=== PATIENT | male | born 1975 | race Two or more races ===

== ENCOUNTER 2021-01-25 10:51 | Outpatient (REF) | payer MEDICARE, MEDICAID, SELFPAY ==
--- NOTE | ~2021-01-25 | XR_ITS ---
EXAMINATION: XR ABDOMEN KUB CLINICAL INDICATION: Abdominal pain COMPARISON: None TECHNIQUE: AP view of the abdomen. FINDINGS: There is a moderate amount of stool in the colon. There are no dilated loops of bowel to suggest obstruction. There is no evidence of free air. No calcifications project over the kidneys. There are small calcifications in the right pelvis probably representing calcified phleboliths. Bony structures are unremarkable. XR/XR KUB IMPRESSION: Moderate amount of stool the colon otherwise unremarkable exam.
[2021-01-25 12:15] LABS: Hematocrit 44.4 % (42-52); Hemoglobin 14.8 g/dl (14.0-18.0); Mean Corpuscular HGB Conc 33.3 g/dl (31.0-36.0); Mean Corpuscular Hemoglobin 31.9 pg (27.0-33.0); Mean Corpuscular Volume 95.7 fL (80-98); Mean Platelet Volume 9.4 fL (9.4-12.4); Platelet Count 324 X10*3/uL (160-400); Red Blood Count 4.64 X10*6/uL (4.60-5.80); White Blood Count 8.2 X10*3/uL (4.8-10.8)
[2021-01-25 12:41] LABS: Alanine Aminotransferase 18 U/L (0-40); Albumin Level 4.3 g/dL (3.5-5.0); Alkaline Phosphatase 53 U/L (39-117); Anion Gap 11 (12-20); Aspartate Amino Transferase 16 U/L (5-37); Bilirubin Direct 0.2 mg/dL (0.0-0.5); Bilirubin Total 0.5 mg/dL (0.0-1.0); Blood Urea Nitrogen 13 mg/dL (9-16); Calcium 9.2 mg/dL (8.4-10.2); Carbon Dioxide 29 mmol/L (22-29); Chloride 102 mmol/L (96-108); Cholesterol 180 mg/dL; Estimated Glomerular Filt Rate > 60; Glucose Fasting 89 mg/dL (60-99); HDL Cholesterol 61 mg/dL; LDL Cholesterol Calculated 107 mg/dl; Potassium 4.7 mmol/L (3.3-5.1); Sodium 137 mmol/L (135-145); Triglycerides 63 mg/dL
[2021-01-25 12:53] LABS: TSH reflex Free T4 1.29 uIU/mL (0.32-4.0)
== END 2021-01-25 10:52 | disposition home or self-care (01) ==
LOC: HO.LAB 10:51
PROVIDERS: PCP Family Medicine; Visit Provider Hospitalist
DX: Z00.00 Encounter for general adult medical examination without abnormal findings (principal); R10.9 Unspecified abdominal pain
CPT/HCPCS: 36415; 74018; 80048; 80061; 80076; 84443; 85027

== ENCOUNTER 2021-05-12 18:40 | Outpatient (REF) | payer MEDICARE, MEDICAID, SELFPAY | END 2021-05-12 18:41 | disposition home or self-care (01) | LOC: HO.LNP 18:40 | PROVIDERS: Visit Provider Internal Medicine | DX: Z13.89 Encounter for screening for other disorder (principal) ==

== ENCOUNTER → 2021-06-23 09:48 | Outpatient (BNVA) | payer MEDICARE, MEDICAID, SELFPAY | PROVIDERS: PCP Family Medicine; Visit Provider Student in an Organized Health Care Education/Training Program | DX: M54.9 Dorsalgia, unspecified (principal); M25.562 Pain in left knee; G89.29 Other chronic pain | CPT/HCPCS: 99202 ==

== ENCOUNTER 2021-12-28 17:45 | Emergency (ER) | payer OTHER, SELFPAY ==
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
[2021-12-28 18:00] VITALS: BP 161/110; PULSE 99; RESP 16; TEMP 36.6; O2SAT 100; BMI 26.6
[2021-12-28 18:16] VITALS: BP 160/100; PULSE 91; RESP 16; O2SAT 99
[2021-12-28] MEDS: Acetaminophen 325 MG TABLET 975 MG PO (19:01)
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
[2021-12-28 19:43] VITALS: RESP 16
--- NOTE | 2021-12-28 19:44 | PC.NURSE ---
PT ASKING FOR FOOD. PROVIDER STATES NPO UNTIL RESULTS OF CT BACK. PT AWARE. RESTING ON BED TALKING ON PHONE.
--- NOTE | 2021-12-28 20:55 | PC.NURSE ---
PT ASKING FOR FOOD. REINFORCED NPO UNTIL RESULTS OF CT. PT AGREEABLE.
[2021-12-28] MEDS: HYDROcodone Bit/Acetam 5/325 TABLET 1 TAB PO (21:29)
[2021-12-28] MEDS: Ibuprofen 600 MG TABLET PO (21:30)
--- NOTE | 2021-12-28 21:32 | PC.NURSE ---
CT WNL. SANDWICH AND GINGERALE GIVEN. MED WITH MOTRIN AND NORCO ORDERED.
[2021-12-28 21:41] VITALS: BP 142/95; PULSE 82; RESP 16; O2SAT 100
== END 2021-12-28 22:09 | disposition home or self-care (01) ==
PROVIDERS: Emergency Provider Internal Medicine; PCP Family Medicine
DX: S39.012A Strain of muscle, fascia and tendon of lower back, initial encounter (principal); S29.012A Strain of muscle and tendon of back wall of thorax, initial encounter; S09.90XA Unspecified injury of head, initial encounter; G44.309 Post-traumatic headache, unspecified, not intractable; M54.2 Cervicalgia; V43.52XA Car driver injured in collision with other type car in traffic accident, initial encounter; Y93.9 Activity, unspecified; Y92.410 Unspecified street and highway as the place of occurrence of the external cause; Y99.9 Unspecified external cause status; F17.210 Nicotine dependence, cigarettes, uncomplicated; Z71.6 Tobacco abuse counseling; Z79.899 Other long term (current) drug therapy
CPT/HCPCS: 70450; 72125; 99284

== ENCOUNTER 2022-02-20 11:00 | Outpatient (RCR) | payer OTHER, MEDICARE, SELFPAY ==
--- NOTE | 2022-03-16 14:58 | MHC.PT.DC ---
[facility] [place] Office [place] Office [place] Office [address] Rhett Bermeo [address] [phone] F: [phone] F: [phone] F: [phone] F: [phone] Physical Therapy Discharge Report Diagnosis: DORSALGIA, UNSPECIFIED (M54.9) Date of Surgery: NA Date of Evaluation: 01/31/22 Date of Discharge: 03/02/22 Treatments to Date: 3 Cancellations to Date: 3 No Shows to Date: 2 Discharge Status: Visit Non-compliance Discharge Summary: Pt CANCELLED AND NO SHOWED FOR MULTIPLE VISITS, UNABLE TO CONTACT BY PHONE AND HAS NO REMAINING VISITS SCHEDULED. HE IS DCed DUE TO NON-COMPLIANCE AT THIS TIME. Electronically signed by: VICKIE RUDOLPH PT, DPT Please sign and return to therapist. Thank you for your referral.
== END 2022-03-16 15:10 | disposition home or self-care (01) ==
LOC: HO.PT 11:00
PROVIDERS: PCP Family Medicine; Visit Provider Family Medicine
DX: M54.9 Dorsalgia, unspecified (principal)
CPT/HCPCS: 97110; 97140; 97162

== ENCOUNTER 2022-05-16 09:00 | Outpatient (RCR) | payer OTHER, MEDICARE, MEDICAID, SELFPAY ==
--- NOTE | 2022-04-19 12:31 | MHC.PT.EP ---
[facility] [place] Office [place] [facility] [place] [facility] [address] Rhett Bermeo [address] [phone] F: [phone] F: [phone] F: [phone] F: [phone] Physical Therapy Plan of Care Date of Evaluation: Date of Surgery: NA Diagnosis: POST-CONCUSSION SYNDROME (KP) Assessment: ALAN RETURNS FOR CONTINUED THERAPY DUE TO ONGOING HEADACHES AND POST-CONCUSSIVE SYMPTOMS. UPON EXAM HE DEMONSTRATES IMPAIRMENTS OF DECREASED TISSUE MOBILITY, INCREASED C/O CERVICOGENIC HEADACHES, DECREASED UPPER EXTREMITY STRENGTH. FUNCTIONAL LIMITATIONS INCLUDE DECREASED ABILITY TO PERFORM HOMEMAKING AND SELF CARE TASKS, DECREASED TOLERANCE TO LIFTING, REACHING AND CARRYING, DECREASED ABILITY TO PARTICIPATE IN COMMUNITY AND RECREATIONAL ACTIVITIES AND DECREASED CONCENTRATION AND FOCUS. Frequency and Duration: The patient will be seen 2 X WEEK FOR 4 WEEKS Short Term Goals: REVIEW AND PROGRESS PREVIOUS [facility] Materials Handling Coordinator Goals: IN 4 WEEKS TO DEMONSTRATE FULL, PAINFREE CERVICAL AND GH ROM TO DEMONSTRATE FULL UE STRENGTH, EQUAL SALINAS TO LIFT, AT MINIMUM #10 TO SHOULDER HEIGHT WITH PAIN NO GREATER THAN 2/10 TO REPORT LESS THAN 2 HEADACHE DAYS/WEEK Treatment Plan: Modalities to reduce pain, spasms and effusion. Manual therapy to restore motion and function. Therapeutic exercise to improve strength and flexibility. Neuromuscular re-education for posture and balance. Therapeutic activities to return to functional activities of daily living. Electronically signed by: VICKIE RUDOLPH PT, DPT Please sign and return to therapist. Thank you for your referral.
== END 2022-06-29 12:59 | disposition home or self-care (01) ==
LOC: HO.PT 09:00
PROVIDERS: PCP Family Medicine; Visit Provider Family Medicine
DX: S06.0X0A Concussion without loss of consciousness, initial encounter (principal)
CPT/HCPCS: 97110; 97140; 97162

== ENCOUNTER 2022-10-23 10:09 | Outpatient (REF) | payer MEDICARE, MEDICAID, SELFPAY ==
[2022-10-23 11:34] LABS: Appearance Urine Clear; Color Urine Yellow; Glucose Urine UA Negative (Negative); Leukocyte Esterase Urine Negative (Negative); Nitrite Urine Negative (Negative); Specific Gravity - Urine <= 1.005 (1.005-1.025); UMIC TRIGGER UA YES; Urine Blood Trace (Negative); Urine Ketones Negative (Negative); Urine Protein Negative (Neg-Trace)
[2022-10-23 11:39] LABS: Bacteria Urine None Seen (None Seen); Hyaline Casts Urine 0-2 /LPF (0-2); RBC Urine 0-2 /HPF (0-2); Squamous Epithelial Cell Urine 0-2 /HPF (0-2); WBC Urine 0-5 /HPF (0-5)
[2022-10-23 12:30] LABS: Alanine Aminotransferase 24 U/L (0-40); Albumin Level 4.4 g/dL (3.5-5.0); Alkaline Phosphatase 75 U/L (39-117); Anion Gap 13 (12-20); Aspartate Amino Transferase 20 U/L (5-37); Bilirubin Total 0.3 mg/dL (0.0-1.0); Blood Urea Nitrogen 11 mg/dL (9-16); Carbon Dioxide 27 mmol/L (22-29); Chloride 103 mmol/L (96-108); Cholesterol 195 mg/dL; Estimated Glomerular Filt Rate > 60; Glucose Fasting 79 mg/dL (60-99); HDL Cholesterol 64 mg/dL; LDL Cholesterol Calculated 115 mg/dl; Potassium 4.8 mmol/L (3.3-5.1); Sodium 138 mmol/L (135-145); Total Protein 7.3 g/dL (6.5-8.0); Triglycerides 84 mg/dL
[2022-10-23 12:42] LABS: Prostate Specific Antigen Scr 0.69 ng/mL (<0.05-4.0); TSH reflex Free T4 0.99 uIU/mL (0.32-4.0)
== END 2022-10-23 10:10 | disposition home or self-care (01) ==
LOC: HO.LAB 10:09
PROVIDERS: Visit Provider Family Medicine
DX: Z00.00 Encounter for general adult medical examination without abnormal findings (principal); Z13.220 Encounter for screening for lipoid disorders; Z13.29 Encounter for screening for other suspected endocrine disorder; Z12.5 Encounter for screening for malignant neoplasm of prostate
CPT/HCPCS: 36415; 80053; 80061; 81001; 84153; 84443

== ENCOUNTER 2022-11-08 14:40 | Outpatient (REF) | payer MEDICARE, MEDICAID, SELFPAY ==
--- NOTE | ~2022-11-08 | FL_ITS ---
EXAMINATION: FL MODIFIED BARIUM SWALLOW CLINICAL INFORMATION: R13.10 - Dysphagia, unspecified COMPARISON: CT head and CT cervical spine 12/28/2021 TECHNIQUE: Modified barium swallow examination is performed with imaging in the lateral view and the presence of the speech pathologist using a variety of barium consistencies, including barium pill. The exam is performed with fluoroscopic evaluation, videofluoroscopy, and some fluoroscopic spot views. Fluoroscopy time: 1.4 minutes DAP: 1.949 Gycm2 Fluoroscopic spot images: 1 FINDINGS: There is normal swallowing with no laryngeal penetration or aspiration. No nasopharyngeal penetration. With thicker barium consistencies, there is some posterior lingual escape prior to initiation of swallowing with barium pooling in the vallecula and some in performed sinuses. Prompt passage of barium pill from mouth to stomach without delay. See speech pathologist report for further assessment and recommendation. FL/FL barium swallow modified IMPRESSION: -No laryngeal penetration or aspiration. -Posterior lingual escape prior to initiation of swallowing with thicker barium consistencies. -See speech pathologist report for further assessment and recommendation.
--- NOTE | 2022-11-08 16:35 | MHC.SL.IMP ---
Date of Plan of Treatment: 11/08/22 Onset of Symptoms/Illness: 11/08/21 Date Treatment Started: 11/08/22 Admitting Diagnosis: Allergies Arthritis Back pain Fibromyalgia Umbilical hernia SURGICAL HX: left knee surgery, hernia surgery Primary Speech & Language Diagnosis: R13.10 Dysphagia Reason for Today's Visit: 70741 Modified Barium Swallow Study Pre-evaluation Dietary Consistencies: Regular Pre-evaluation Liquid Consistency: Thin Pre-evaluation Medication Administration: Whole with Liquid Medical History: Modified Barium Swallow Study Fluoroscopic Evaluation of Swallowing Function CPT Code 74312 Evaluation Year: 2021 Reason for Study: Patient reports globus sensation and pain when swallowing. Referring Physician: Jono Lehman MD Evaluating Clinician: Letitia Crook MA, CCC-FISHING VESSEL DECKHAND Study Number: 1 Patient Name: Eagle Balbuena Status: Outpatient, Ambulatory Age: 47 Gender: Male MEDICAL HISTORY: Allergies Arthritis Back pain Fibromyalgia Umbilical hernia SURGICAL HX: left knee surgery, hernia surgery Current (pre-evaluation) Intake/Diet: Route: PO Diet Grade: Regular Liquid Consistencies: Thin Pre-Study Functional Oral Intake Scale (FOIS): 7- Total oral intake with no restrictions Pain: Chronic/Ongoing reported at time of study, Throat, rated 7 on scale 0-10 SUBJECTIVE: Pt is a 47 year old male referred for a modified barium swallow study by Jono Lehman MD of [facility]. Pt has hx of persistent acid reflux and reported intermittent odynophagia. Pt reported that his throat gets very dry when eating and that it is hard for him to swallow. Pt reports intermittent coughing during meals, and that this occurs with liquids sometimes, but more so with dry solids. Pt reports ongoing throat pain, which he rates 6 or 7 out of 10. Pt reports that he feels pain in his throat at rest and when he is coughing or swallowing. Additionally, pt reported he feels globus sensation sometimes, but not always. Pt reports onset of dysphagia to be approximately 1 year ago. Oral Motor Exam Facial Symmetry: Symmetrical Mouth Occlusion: Normal Oral-Facial Teeth Characteristics: Intact/Normal Oral-Facial Smile (Lips) Description: Normal Oral-Facial Puff Cheeks Description: Normal Tongue Size: Normal Tongue Excursion Description: Normal Tongue Range of Movement Description: Normal Tongue Speed of Movement Description: Normal Tongue Strength of Movement (against opposing pressure): Normal Tongue Movement Characteristics: Normal/Absent Is patient able to manage secretions?: Yes Food and Liquid Trials: Oral Impairment: Lip Closure: Did not test Oral Impairment: Tongue Control During Bolus Hold: 2=Posterior escape of less than half of bolus Oral Impairment: Bolus Preparation/Mastication: 0=Timely and efficient chewing and mashing Oral Impairment: Bolus Transport/Lingual Motion: 1= Delayed initiation of tongue motion Oral Impairment: Oral Residue: 0=Complete oral clearance Oral Impairment:Initiation of Pharyngeal Swallow: 3=Bolus head in pyriforms Pharyngeal Impairment: Soft Palate Elevation: 0=No bolus between soft palate (SP)/pharyngeal wall (PW) Pharyngeal Impairment: Laryngeal Elevation: 0=Complete superior movement of thyroid cartilage (see description) Pharyngeal Impairment: Anterior Hyoid Excursion: 0=Complete anterior movement Pharyngeal Impairment: Epiglottic Movement: 0=Complete inversion Pharyngeal Impairment: Laryngeal Vestibular Closure:: 0=Complete: no air/contrast in laryngeal vestibule Pharyngeal Impairment: Pharyngeal Stripping Wave: 0=Present: complete Pharyngeal Impairment: Pharyngeal Contraction: Did not test Pharyngeal Impairment: Pharyngoesophageal Segment Openin=Complete distension and complete duration: no obstruction of flow Pharyngeal Impairment: Tongue Base (TB) Retraction: 1=Trace column of contrast/air between TB and posterior PW Pharyngeal Impairment: Pharyngeal Residue: 0=Complete pharyngeal clearance Pharyngeal Impairment: Esophageal Clearance Upright Position: 0=Complete clearance: esophageal coating Impressions and Recommendations Clinical Observations: OBJECTIVE: Time-out: performed at 3:00 Evaluation Start: 2:45; Stop: 2:46 Patient Positioning: Standing Viewing Planes: LATERAL ONLY Contrast: MBSImP? Standardized Protocol using commercially prepared, standardized Barium viscosities, including: Varibar? THIN LIQUID (40% w/v, <15 cps) , 1/2 Shortbread Cookie (1 x1 x.25 ) MBSImP ID: [id number] MBSImP Results: Lip closure for intraoral bolus containment could not be assessed due to logistical reasons not related to physiologic impairment. Tongue control during bolus hold resulted in posterior escape of less than half of the bolus. Bolus preparation and mastication resulted in timely and efficient chewing and mashing. Bolus transport/lingual motion demonstrated delayed initiation of tongue motion. Oral residue was not observed. There was complete oral clearance. Initiation of the pharyngeal swallow occurred when the bolus head was in the pyriform sinuses. Soft palate elevation resulted in no bolus between the soft palate and the pharyngeal wall. Laryngeal elevation demonstrated complete superior movement of the thyroid cartilage with complete approximation of the arytenoids to the epiglottic petiole. Anterior hyoid excursion demonstrated complete anterior movement. Epiglottic movement resulted in complete inversion. Laryngeal vestibular closure was complete, as indicated by no air or contrast within the laryngeal vestibule at the height of the swallow. Pharyngeal stripping wave was present and complete. Pharyngeal contraction could not be determined due to logistical reasons not related to physiologic impairment. Pharyngoesophageal segment opening was completely distended for complete duration with no obstruction of bolus flow. Tongue base retraction allowed a trace column of contrast or air between the retracted tongue base and the posterior pharyngeal wall. Pharyngeal residue was not present. There was complete pharyngeal clearance. Esophageal clearance in the upright position was complete, with only a coating of contrast, if any. Oral Impairment Score: 6 (absence of score, component 1) Pharyngeal Impairment Score: 0 (absence of score, component 13) Esophageal Impairment Score: 0 Laryngeal Penetration and Aspiration: Neither penetration nor aspiration was observed in today's study with Claudio Henry. ASSESSMENT: Clinician Assessment: This exam was conducted by a multidisciplinary team, which included a radiologist, speech pathologist (FISHING VESSEL DECKHAND), and cmm technician. An FISHING VESSEL DECKHAND student clinician was also present. Pt was able to feed himself without difficulty. Pt consumed the following liquid and solid consistencies: thin liquid barium by cup (individual sips and sequential sips), pureed solid (mixture applesauce with barium paste), ground solid (mixture chicken salad with barium paste), regular solid (Hui Doone cookie coated with barium paste), barium pill tablet with sequential sips nectar thick liquid. There was premature posterior escape of less than half the bolus with sips of liquids, delayed posterior lingual motion. Mastication was timely and efficient with complete oral recollection. Pharyngeal swallow trigger initiated as bolus head reached pyriform sinuses. There was no nasopharyngeal reflux. Laryngeal elevation was complete with complete epiglottic inversion and complete laryngeal vestibular closure. No evidence of aspiration or penetration with intake of solids and liquids during this exam. There was complete pharyngeal clearance. No obstruction of flow through the pharyngoesohpageal segment opening. Barium pill tablet passed through oropharynx without hang up. Liquid Intake Recommendation: Thin Dietary Recommendations: Regular Medication Administration: Whole with Liquid Please contact the pharmacy regarding appropriate crushable or liquid drug formulations that are available whenever modified delivery is recommended. Compensatory Strategies Recommended: Sitting Upright (90 deg), Small Bites and Sips, Rate of Ingestion Change Supervision during eating and or drinking: None Needed Recommendation for Speech Therapy: NA:Typical Evaluation PLAN: Intake Recommendations: Route: PO Diet Grade: Regular Liquid Consistencies: Thin Post-Study Functional Oral Intake Scale (FOIS): 7- Total oral intake with no restrictions No evidence of aspiration or penetration. Complete oral and pharyngeal clearance. This exam was unremarkable. Pt may benefit from referral to ENT given reports of throat pain. Recommend continue care w/ G.I. for reflux. Suggested Referrals: The patient might benefit from a referral to: Gastroenterology Indication for Referral: Continue care; pt w/ hx reflux Otolaryngology Indication for Referral: Ongoing throat pain Therapy Recommendations: Therapy will be discontinued Prognosis for Improvement: The prognosis for the patient to meet nutritional needs by mouth is excellent based on degree of impairment. Clinician - Supplemental, Miscellaneous Communication: It is important to note MBSS objective studies are snapshots in time and Patient function might vary with factors such as time of day or concomitant medical conditions. For this reason, the final treatment plan for this patient should rest with their medical care team. Additional recommendations should be considered with the totality of the Patient in mind. Thank for the opportunity to participate in the care of this patient. If you have any questions about the content of this report, please contact the [facility] at [facility]. Education: Education regarding findings from today's study and plans for therapy were provided to Patient only through Verbal Instruction. Understanding was expressed by the Patient only. Stand Up Comedian Clinician/Clinical Fellow: Yes: Juan Carlos Powell Supervisory Statement: N/A Speech Language Pathologist: Letitia Crook M.A., CCC-FISHING VESSEL DECKHAND
== END 2022-11-08 14:41 | disposition home or self-care (01) ==
LOC: HO.XRAY 14:40
PROVIDERS: PCP Family Medicine; Visit Provider Family Medicine
DX: R13.10 Dysphagia, unspecified (principal); R10.9 Unspecified abdominal pain; K21.9 Gastro-esophageal reflux disease without esophagitis
CPT/HCPCS: 74230; 92611; 99202

== ENCOUNTER 2022-12-15 10:10 | Outpatient (REF) | payer MEDICARE, MEDICAID, SELFPAY ==
--- NOTE | ~2022-12-15 | US_ITS ---
EXAMINATION: US ABDOMEN COMPLETE CLINICAL INFORMATION: Unspecified abdominal pain. COMPARISON: X-ray abdomen KUB 01/25/2021. TECHNIQUE: Real-time imaging of the abdominal viscera. FINDINGS: PANCREAS: Normal. ABDOMINAL AORTA: The proximal, mid, and distal segments are normal in caliber. INFERIOR VENA CAVA: Visualized portions are normal. LIVER: Normal. The liver is normal in size. The liver contour is normal. Parenchymal echogenicity is normal. No focal hepatic lesion. There is no intrahepatic biliary duct dilatation seen. GALLBLADDER: Normal. The gallbladder is physiologically distended without evidence of stones, sludge, polyps, wall thickening or pericholecystic fluid. COMMON BILE DUCT: Normal in caliber measuring 0.3 cm in diameter. RIGHT KIDNEY: Normal. No hydronephrosis. No renal calculi or focal parenchymal lesions. The kidney measures 11.9 cm in maximum dimension. LEFT KIDNEY: Normal. No hydronephrosis. No renal calculi or focal parenchymal lesions. The kidney measures 11.8 cm in maximum dimension. SPLEEN: Normal. The spleen measures 8.7 cm in maximum dimension. FREE FLUID: None. US/US abdomen complete IMPRESSION: Unremarkable abdominal ultrasound.
== END 2022-12-15 10:11 | disposition home or self-care (01) ==
LOC: HO.US 10:10
PROVIDERS: Visit Provider Physician Assistant
DX: R10.9 Unspecified abdominal pain (principal)
CPT/HCPCS: 76700

== ENCOUNTER 2023-09-20 11:42 | Outpatient (AMB) | payer MEDICARE, MEDICAID, SELFPAY ==
[2023-09-20 13:16] VITALS: BP 118/82; PULSE 81; TEMP 36.9; O2SAT 97; BMI 23.4
--- NOTE | 2023-09-20 13:16 | AM.OFFWIN_ITS ---
Intake Vital Signs 09/20/23 13:16 Height 5 ft 7 in Weight 149 lb 6 oz BMI 23.4 BP 118/82 Blood Pressure Location Rt brachial Position Sitting Pulse 81 Pulse Source Pulse Oximeter Temp 98.5 F Temp Source Temporal Artery Scan Pulse Oximetry (%) 97 Oxygen Delivery Method Room Air Intake Visit Reasons: EST/dizziness Lobby Intake Note: Pt presents to the office today for c/o dizziness. Pt states he also has chest congestion, and green mucus that started about a week ago. Patient Tobacco Use Status: Current someday Tobacco user Allergies Seasonal Allergies Allergy (Severe, Verified 09/20/23 13:18) dry eyes, coughing sneezing, chest congestion. HPI HPI Comments History of Present Illness Details 48-year-old male that presents for flu-l bill symptoms. Patient has been experiencing body aches chills cough congestion intermittent dizziness x1 week. PFSH Medical History Umbilical hernia Back pain Arthritis Fibromyalgia Allergies Surgical History History of hernia surgery H/O left knee surgery Family History Mother Hypertension Diabetes Arthritis Social History Household Members Other:: fiance Housing: Apartment Alcohol intake: current Alcohol intake frequency: holidays/special occasions only Alcohol type: wine Patient Tobacco Use Status: Current someday Tobacco user Cigarettes Per Day: 3 Years Smoked: 20 e-Cigarette/Vaping Use: Never Used service: No Current occupational status: unemployed and disabled Current occupational exposures/hazards: No Cognitive needs: No Hearing needs: No Vision needs: No Review of Systems Const Reports body aches, Reports chills and Reports fatigue Resp Reports chest congestion and Reports cough Endo Reports fatigue Physical Exam Vital Signs: Last Vital Signs Temp 98.5 F 09/20/23 13:16 Pulse 81 09/20/23 13:16 BP 118/82 09/20/23 13:16 Pulse Ox 97 09/20/23 13:16 Oxygen Delivery Method Room Air 09/20/23 13:16 BMI result Body Mass Index 23.4 Const General: cooperative, no acute distress and alert Orientation/consciousness: patient oriented x3 Limitations: no limitations HEENT Head: Yes normal to inspection Ears: hearing grossly normal bilaterally and external ears normal General nose exam: Normal external nose present Eyes General: appearance normal, both eyes and all related structures Neck Neck: Yes normal visual inspection Chest Chest palpation & inspection: normal inspection of the chest Resp Effort & Inspection: normal respiratory effort, able to speak in complete sentences and no audible wheezes Auscultation: clear to auscultation bilaterally Cardio Rate: regular rate Rhythm: regular rhythm GI Inspection: Yes normal to inspection Palpation (GI): Soft to palpation and nontender Skin General skin exam: no rashes or lesions noted Neuro General: patient oriented x3 Psych Appearance: grossly normal Mental Status: mental status grossly normal Speech and movement: Normal speech and movement present Affect: normal affect Attitude: cooperative Thought process: Normal thought process present Thought content: Normal thought content present Assessment & Plan Assessment & Plan (1) URI (upper respiratory infection): Code(s): J06.9 - Acute upper respiratory infection, unspecified Qualifiers: URI type: unspecified viral URI Qualified Code(s): J06.9 - Acute upper respiratory infection, unspecified Plan: Patient is an symptoms consistent viral URI will provide COVID fluid orders the swab Discharge instructions, follow up and treatment are discussed with patient in my usual fashion. Alternatives in treatment are also discussed. The patient will return for worsening symptoms or as needed. Advised that any labs/imaging ordered will be followed up on and contact made if further treatment needed. Counseled that patient's condition may require further evaluation and/or treatment. Symptoms of concern for worsening disorder discussed in detail in my customary manner. Patient does verbalize understanding of the plan, there are no apparent barriers to communication. The patient is given the opportunity to ask questions and have them answered to his/her satisfaction Orders: Orders SARS-CoV2/FLU/RSV Today R09.89 - Other specified symptoms and signs involving the circulatory and respiratory systems Coding Level of Care Code Est Pt Level 3 (29120) Diagnoses Viral upper respiratory tract infection J06.9 URI type: unspecified viral URI
== END 2023-09-20 13:54 | disposition home or self-care (01) ==
PROVIDERS: PCP Family Medicine; Visit Provider Physician Assistant
DX: J06.9 Acute upper respiratory infection, unspecified (principal)
CPT/HCPCS: 99213

== ENCOUNTER 2023-09-20 13:52 | Outpatient (REF) | payer MEDICARE, MEDICAID, SELFPAY ==
[2023-09-20 17:22] LABS: Influenza A PCR NEGATIVE (Negative); Influenza B PCR NEGATIVE (Negative); Resp Syncy Virus RNA Qual PCR NEGATIVE (Negative); SARS COV2 PCR INHOUSE NEGATIVE (Negative)
== END 2023-09-20 13:53 | disposition home or self-care (01) ==
LOC: HO.LNP 13:52
PROVIDERS: Visit Provider Physician Assistant
DX: R09.89 Other specified symptoms and signs involving the circulatory and respiratory systems (principal); Z20.822 Contact with and (suspected) exposure to COVID-19
CPT/HCPCS: 0241U

== ENCOUNTER 2023-10-11 12:09 | Outpatient (AMB) | payer MEDICARE, MEDICAID, SELFPAY ==
--- NOTE | 2023-10-11 12:15 | A.OFFPC_ITS ---
Vital Signs 10/11/23 12:16 Height 5 ft 7 in Weight 148 lb 8 oz BMI 23.3 BP 110/62 Blood Pressure Location Lt brachial Position Sitting Pulse 85 Pulse Source Pulse Oximeter Temp 98.3 F Temp Source Oral Pulse Oximetry (%) 96 Intake Visit Reasons: CPE Intake Note: Patient is here today for his physical today. He would like a Covid swab today, her with cough and body aches. Allergies Seasonal Allergies Allergy (Severe, Verified 10/11/23 12:21) dry eyes, coughing sneezing, chest congestion. Iodinated Contrast Media [IV Dye, Iodine Containing] Allergy (Intermediate, Unverified 10/11/23 12:21) PALPITATIONS Tobacco use date assessed: 10/11/23 HPI CPE HPI Details 48 y/o male presents today for a CPE wit h f/u labs and health maintenance. No recent labs to review. He reports an ongoing cough. He also reports ongoing issues with acid reflux and difficulty swallowing. He denies any viral illness symptoms. He reports visual acuity changes. HPI Comments History of Present Illness Details Documentation assistance for Jono Lehman MD, was provided by Deandre Vera,? [employer] on 10/11/2023 12:51 PM EST. I, Dr. Lehman, have read, observed, and verified documentation. PFS Medical History (Updated 10/11/23 @ 12:53 by Deandre Vera) Umbilical hernia Back pain Arthritis Fibromyalgia Allergies Surgical History (Updated 10/05/23 @ 15:25 by Dianne Ribeiro) History of hernia surgery H/O left knee surgery Family History (System 10/05/23 @ 15:25 by Dianne Ribeiro) Mother Hypertension Diabetes Arthritis Social History (System 10/05/23 @ 15:25 by Dianne Ribeiro) Household Members Other:: fiance Housing: Apartment Alcohol intake: current Alcohol intake frequency: holidays/special occasions only Alcohol type: wine Patient Tobacco Use Status: Current someday Tobacco user Cigarettes Per Day: 3 Years Smoked: 20 e-Cigarette/Vaping Use: Never Used service: No Current occupational status: unemployed and disabled Current occupational exposures/hazards: No Cognitive needs: No Hearing needs: No Vision needs: No Questionnaire Thrive Questionnaire Date Thrive assessed: 12/14/22 ENRIQUE-7 AMB Questionnaire ENRIQUE-7 Date ENRIQUE - 7 assessed: 12/14/22 Source: Developed by Drs. Raphael Serrano, Debra Lora, Bird Duran and colleagues, with an educational christian from [employer]. Review of Systems Const Denies chills, Denies fatigue, Denies fever(s), Denies headache(s) and Denies weakness Eyes Denies change in vision ENT Denies dizziness, Denies headache(s), Denies hearing loss, Denies nasal congestion, Denies sinus pain, Denies sinus pressure and Denies sore throat Card Denies chest pain, Denies lightheadedness, Denies dyspnea and Denies other (palpitations) Resp Denies cough, Denies dyspnea and Denies wheezing GI Denies abdominal pain, Denies melena, Denies hematochezia, Denies change in bowel habits, Denies dyspepsia and Denies nausea Denies hematuria and Denies dysuria Musc Denies abnormal gait, Denies myalgias, Denies arthralgias, Denies numbness and Denies tingling Skin/Breast Denies rash, Denies unusual bruising and Denies wounds Neuro Denies abnormal gait, Denies dizziness, Denies headache(s), Denies memory loss, Denies numbness, Denies Sensory deficit (Neuro), Denies tingling and Denies weakness Psych Denies anxiety, Denies depression and Denies memory loss Endo Denies cold intolerance, Denies fatigue, Denies heat intolerance, Denies polydipsia and Denies polyuria Tc/Lymph Denies easy bleeding and Denies easy bruising Aller/Immun Denies wheezing Physical exam (Primary Care) Vital Signs: Last Vital Signs Temp 98.3 F 10/11/23 12:16 Pulse 85 10/11/23 12:16 BP 110/62 10/11/23 12:16 Pulse Ox 96 10/11/23 12:16 BMI result Body Mass Index 23.3 Tobacco/Smoking Status: Tobacco use Status Tobacco use date assessed 10/11/23 10/11/23 12:22 Patient Tobacco Use Status Current someday Tobacco 10/11/23 12:17 e-Cigarette/Vaping Use Never Used 10/11/23 12:17 Thrive Assessment: Date of Thrive Assessment Date Thrive assessed 12/14/22 10/11/23 12:17 Const General: no acute distress, well developed, alert and awake Nutritional Appearance: well nourished Orientation/consciousness: patient oriented x3 HENPR Head: Yes normocephalic and Yes atraumatic Ears: hearing grossly normal bilaterally and TM's normal bilaterally General nose exam: Normal external nose present and Normal nares present Mouth: Normal oral and palatal mucosa present and moist mucous membranes Teeth and gingiva: dentition normal Throat: Yes posterior oropharynx normal Eyes General: appearance normal, both eyes and all related structures Pupils: Equal, round and reactive pupils present and Pupil accommodation reflex normal EOM: EOMs intact bilaterally Neck Neck: Yes normal visual inspection, Yes no lymphadenopathy and Yes trachea midline Thyroid: Thyroid normal Carotids: no bruits Lymphatic: no lymphadenopathy noted Chest Chest palpation & inspection: normal inspection of the chest Resp Effort & Inspection: normal respiratory effort Auscultation: clear to auscultation bilaterally Cardio Rate: regular rate Rhythm: regular rhythm Heart sounds: S1 normal heart sound present, S2 normal heart sound present, no gallops, no murmurs and no rubs Bruits: no abdominal aortic bruits and no carotid bruits GI Palpation (GI): No Abdominal aortic bruit present, Soft to palpation, nontender, No hepatosplenomegaly present and No Rebound tenderness present Auscultation: normal bowel sounds General: Yes no CVA tenderness Back/Spine/Pelvis Back: no CVA tenderness Cervical Spine: cervical ROM normal and No Cervical spine tenderness Thoracic/Lumbar Spine: thoraco-lumbar ROM normal, No pain with thoraco-lumbar ROM, No thoracic spinal tenderness and No lumbar spinal tenderness Skin Lesions: no lesions Rashes: no rashes Trauma: no lacerations or abrasions Wounds: no wounds Nails: normal Neuro General: patient oriented x3 Cranial nerves: Yes Equal, round and reactive pupils present Cognition (Neuro): normal cognition Gait exam (Neuro): Normal gait present Motor exam (neuro): 5/5 motor strength present throughout Sensory Exam: No Sensory deficit (Neuro) Deep tendon reflexes (DTR's): Right patellar reflex intensity grade: 2+ and Left patellar reflex intensity grade: 2+ Extrem General: Yes normal to inspection and No edema Psych Appearance: grossly normal Affect: normal affect Attitude: cooperative Thought process: Normal thought process present Assessment and Plan Assessment & Plan (1) GERD (gastroesophageal reflux disease): Code(s): K21.9 - Gastro-esophageal reflux disease without esophagitis Plan: Ongoing?GERD?and?difficulty?swallowing Had?referred?him?to?Gastroenterology. GI?is?recommending?EGD?but ?patient?has?not?had?this?scheduled?yet.??I?gave?him?the?phone?number?for?GI?to? check?on?status Will?give?him?omeprazole (2) Cough: Code(s): R05.9 - Cough, unspecified Plan: Ongoing?cough?for?months. 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 Panel Fast Today Z00.00 - Encounter for general adult medical examination without abnormal findings Complete Blood Count Auto Diff Today Z00.00 - Encounter for general adult medical examination without abnormal findings Microalbumin, Random (w Creat) Today I10 - Essential (primary) hypertension Prostate Specific Antigen Scr Today Z12.5 - Encounter for screening for malignant neoplasm of prostate UA and rflx microscopic Today Z00.00 - Encounter for general adult medical examination without abnormal findings XR chest 2V Today R05.9 - Cough, unspecified Lipid Panel Today Z00.00 - Encounter for general adult medical examination without abnormal findings TSH reflex Free T4 Today Z00.00 - Encounter for general adult medical examination without abnormal findings Medications: New omeprazole 40 mg PO DAILY 30 caps 1RF 30 days Refilled duloxetine 60 mg PO DAILY 90 caps 2RF 90 days M79.7 - Fibromyalgia Coding Level of Care Code Est Pt Level 4 (19107) Diagnoses GERD (gastroesophageal reflux disease) K21.9 Cough R05.9 Vision changes H53.9 Fibromyalgia M79.7 Screening for prostate cancer Z12.5 Adult general medical exam Z00.00
[2023-10-11 12:16] VITALS: BP 110/62; PULSE 85; TEMP 36.8; O2SAT 96; BMI 23.3
== END 2023-10-11 13:07 | disposition home or self-care (01) ==
PROVIDERS: PCP Family Medicine; Visit Provider Family Medicine
DX: K21.9 Gastro-esophageal reflux disease without esophagitis (principal); R05.9 Cough, unspecified; H53.9 Unspecified visual disturbance; M79.7 Fibromyalgia; Z12.5 Encounter for screening for malignant neoplasm of prostate; Z00.00 Encounter for general adult medical examination without abnormal findings
CPT/HCPCS: 99214

== ENCOUNTER 2023-10-11 13:12 | Outpatient (REF) | payer MEDICARE, MEDICAID, SELFPAY ==
[2023-10-11 15:10] LABS: Influenza A PCR NEGATIVE (Negative); Influenza B PCR NEGATIVE (Negative); Resp Syncy Virus RNA Qual PCR NEGATIVE (Negative); SARS COV2 PCR INHOUSE NEGATIVE (Negative)
== END 2023-10-11 13:13 | disposition home or self-care (01) ==
LOC: HO.LAB 13:12
PROVIDERS: Visit Provider Family Medicine
DX: Z11.52 Encounter for screening for COVID-19 (principal); Z20.822 Contact with and (suspected) exposure to COVID-19; R09.89 Other specified symptoms and signs involving the circulatory and respiratory systems
CPT/HCPCS: 0241U

== ENCOUNTER 2024-01-02 11:25 | Outpatient (REF) | payer MEDICARE, MEDICAID, SELFPAY ==
--- NOTE | ~2024-01-02 | XR_ITS ---
EXAMINATION: XR CHEST CLINICAL INFORMATION: Cough, unspecified COMPARISON: Chest 12/11/2019 TECHNIQUE: 2 views of the chest were obtained. FINDINGS: The lungs are hyperinflated and clear. The cardiomediastinal silhouette is within normal limits. No pleural effusions. No acute osseous abnormality. XR/XR chest 2V IMPRESSION: No acute disease.
[2024-01-02 11:49] LABS: MANUAL DIFF FLAG NO
[2024-01-02 12:14] LABS: Basophils Percent Auto 0.4 % (0-2); Eosinophils Absolute Auto 0.3 X10*3/uL (0.0-0.4); Eosinophils Percent Auto 3.1 % (0-4); Hematocrit 46.3 % (42.0-52.0); Hemoglobin 15.8 g/dl (14.0-18.0); Imm Gran Abs Auto 0.02 X10*3/uL (0.00-0.03); Imm Gran Pct Auto 0.2 % (0.0-0.4); Lymphocytes Absolute Auto 3.2 X10*3/uL (1.2-4.9); Lymphocytes Percent Auto 31.9 % (20-40); Mean Corpuscular HGB Conc 34.1 g/dl (31.0-36.0); Mean Corpuscular Hemoglobin 32.8 pg (27.0-33.0); Mean Corpuscular Volume 96.3 fL (80.0-98.0); Mean Platelet Volume 9.1 fL (9.4-12.4); Monocytes Absolute Auto 0.8 X10*3/uL (0.1-1.2); Monocytes Percent Auto 7.8 % (2-11); Neutrophils Absolute Auto 5.7 x10*3/uL (2.0-8.3); Neutrophils Percent Auto 56.6 % (45-73); Platelet Count 376 X10*3/uL (160-400); Red Blood Count 4.81 X10*6/uL (4.60-5.80); Red Cell Distribution Width 11.4 % (11.0-16.0); White Blood Count 10.1 X10*3/uL (4.8-10.8)
[2024-01-02 12:15] LABS: Appearance Urine Clear; Color Urine Yellow; Glucose Urine UA Negative (Negative); Leukocyte Esterase Urine Negative (Negative); Nitrite Urine Negative (Negative); Specific Gravity - Urine 1.015 (1.005-1.025); Urine Blood Negative (Negative); Urine Ketones Negative (Negative); Urine Protein Negative (Neg-Trace)
[2024-01-02 13:04] LABS: Creatinine Urine 101.01 mg/dL; Microalbumin Urine < 5.0 mg/L
[2024-01-02 13:06] LABS: Prostate Specific Antigen Scr 0.78 ng/mL (<0.05-4.0)
[2024-01-02 13:11] LABS: Alanine Aminotransferase 17 U/L (0-40); Albumin Level 4.4 g/dL (3.5-5.0); Alkaline Phosphatase 64 U/L (39-117); Anion Gap 12 (12-20); Aspartate Amino Transferase 19 U/L (5-37); Bilirubin Total 0.6 mg/dL (0.0-1.0); Blood Urea Nitrogen 11 mg/dL (9-16); Calcium 9.7 mg/dL (8.4-10.2); Carbon Dioxide 27 mmol/L (22-29); Chloride 103 mmol/L (96-108); Cholesterol 184 mg/dL (<200); Estimated Glomerular Filt Rate > 60; Glucose Fasting 91 mg/dL (60-99); HDL Cholesterol 60 mg/dL (>40); LDL Cholesterol Calculated 108 mg/dL (<100); Sodium 137 mmol/L (135-145); Total Protein 7.5 g/dL (6.5-8.0); Triglycerides 83 mg/dL (<150)
[2024-01-02 13:14] LABS: TSH reflex Free T4 1.05 uIU/mL (0.32-4.0)
== END 2024-01-02 11:26 | disposition home or self-care (01) ==
LOC: HO.LAB 11:25
PROVIDERS: PCP Family Medicine; Visit Provider Family Medicine
DX: Z00.00 Encounter for general adult medical examination without abnormal findings (principal); I10 Essential (primary) hypertension; R05.9 Cough, unspecified; Z12.5 Encounter for screening for malignant neoplasm of prostate
CPT/HCPCS: 36415; 71046; 80053; 80061; 81003; 82043; 82570; 84153; 84443; 85025

== ENCOUNTER 2024-01-08 08:39 | Outpatient (AMB) | payer MEDICARE, MEDICAID, SELFPAY ==
--- NOTE | 2024-01-08 08:55 | MHC.PC.OV ---
Vital Signs 01/08/24 08:56 Height 5 ft 7 in Weight 156 lb 8 oz BMI 24.5 BP 129/83 Blood Pressure Location Lt brachial Position Sitting Pulse 78 Pulse Source Pulse Oximeter Pulse Oximetry (%) 96 Oxygen Delivery Method Room Air Intake Visit Reasons: Follow up CPE/Lab/ referral Intake Note: Patient is here for a physical, follow up on labs, and referral to [facility]. Patient would like refill for eye drops, Omeprazole, and nicotine gum. Allergies Seasonal Allergies Allergy (Severe, Verified 01/08/24 09:01) dry eyes, coughing sneezing, chest congestion. Iodinated Contrast Media [IV Dye, Iodine Containing] Allergy (Intermediate, Unverified 01/08/24 09:01) PALPITATIONS Tobacco use date assessed: 01/08/24 Dental Screening Dental Screen Date: 01/08/24 Did you have a dental visit in the last 12 months?: Yes Did you have a dental problem in the last 6 months where you did not have access to dental care?: No Was dental information given to patient?: Patient has dentist HPI Follow up CPE/Lab/ referral HPI Details 48 y/o male presents for an extended exam. Labs were drawn 01/02/24. Reviewed labs with pt. Triglycerides 83. TC 184. LDL 108. HDL 60. Pt notes omeprazole has been helping with his GERD. Pt reports an ongoing cough. He notes he does smoke but has tried to quit. He smokes a few cigarettes a day. [facility] Medical History (Updated 01/08/24 @ 09:52 by Deandre Vera) Fracture of fifth toe, right, open Umbilical hernia Back pain Arthritis Fibromyalgia Allergies Surgical History (Updated 01/08/24 @ 09:05 by Sharona Bello CMA) H/O rhinoplasty History of hernia surgery H/O left knee surgery Family History Mother Hypertension Diabetes Arthritis Social History Household Members Other:: fiance Housing: Apartment Alcohol intake: current Alcohol intake frequency: holidays/special occasions only Alcohol type: wine Patient Tobacco Use Status: Current someday Tobacco user Cigarettes Per Day: 3 Years Smoked: 20 e-Cigarette/Vaping Use: Never Used service: No Current occupational status: unemployed and disabled Current occupational exposures/hazards: No Cognitive needs: No Hearing needs: No Vision needs: No Questionnaire PHQ-9 Over the last 2 weeks, how often have you been bothered by any of the following problems? 1. Little interest or pleasure in doing things: not at all 2. Feeling down, depressed, or hopeless: not at all 3. Trouble falling or staying asleep, or sleeping too much: not at all 4. Feeling tired or having little energy: not at all 5. Poor appetite or overeating: not at all 6. Feeling bad about yourself - or that you are a failure or have let yourself or your family down: not at all 7. Trouble concentrating on things, such as reading the newspaper or watching television: not at all 8. Moving or speaking so slowly that other people could have noticed. Or the opposite - being so fidgety or restless that you have been moving around a lot more than usual: not at all 9. Thoughts that you would be better off or of hurting yourself in some way: not at all Total score: 0 Depression Screening Interpretation: Negative Depression Screening Done: Yes Source: Developed by Drs. Raphael Serrano, Debra Lora, Bird Duran and colleagues, with an educational christian from [email or web address]. Thrive Questionnaire Date Thrive assessed: 12/14/22 ENRIQUE-7 AMB Questionnaire ENRIQUE-7 Date ENRIQUE - 7 assessed: 01/08/24 Feeling nervous, anxious, or on edge: 0 = Not at all Not being able to stop or control worryin = Not at all Worrying too much about different things: 3 = Nearly every day Trouble relaxin = Several days Being so restless that it is hard to sit still: 1 = Several days Becoming easily annoyed or irritable: 0 = Not at all Feeling afraid as if something awful might happen: 0 = Not at all Total ENRIQUE-7 score (0-4 normal; 5-9 mild; 10-14 moderate; 15-21 severe): 5 Source: Developed by Drs. Raphael Serrano, Debra Lora, Bird Duran and colleagues, with an educational christian from [email or web address]. Review of Systems Const Denies chills, Denies fatigue, Denies fever(s), Denies headache(s) and Denies weakness Eyes Denies change in vision ENT Denies dizziness and Denies headache(s) Card Denies chest pain, Denies lightheadedness, Denies dyspnea and Denies other (Palpitations) Resp Denies cough, Denies dyspnea, Denies wheezing and Denies other ( shortness of breath) GI Denies abdominal pain, Denies melena, Denies hematochezia, Denies change in bowel habits, Denies dyspepsia and Denies nausea Denies hematuria and Denies dysuria Musc Denies numbness and Denies tingling Skin/Breast Denies rash, Denies unusual bruising and Denies wounds Neuro Denies dizziness, Denies headache(s), Denies numbness, Denies Sensory deficit (Neuro), Denies tingling, Denies paresthesias and Denies weakness Psych Denies anxiety and Denies depression Endo Denies fatigue Tc/Lymph Denies easy bleeding and Denies easy bruising Aller/Immun Denies wheezing Physical exam (Primary Care) Vital Signs: Last Vital Signs Pulse 78 01/08/24 08:56 BP 129/83 01/08/24 08:56 Pulse Ox 96 01/08/24 08:56 Oxygen Delivery Method Room Air 01/08/24 08:56 BMI result Body Mass Index 24.5 Tobacco/Smoking Status: Tobacco use Status Tobacco use date assessed 01/08/24 01/08/24 09:09 Patient Tobacco Use Status Current someday Tobacco 01/08/24 08:56 e-Cigarette/Vaping Use Never Used 01/08/24 08:56 PHQ-9: PHQ-9 Score PHQ-9: Total score 0 01/08/24 09:40 Depression Screening Interpretation: Negative Thrive Assessment: Date of Thrive Assessment Date Thrive assessed 12/14/22 01/08/24 08:56 Const General: no acute distress and well developed Nutritional Appearance: well nourished Orientation/consciousness: patient oriented x3 HENMT Head: Yes normocephalic and Yes atraumatic Ears: hearing grossly normal bilaterally and TM's normal bilaterally General nose exam: Normal external nose present and Normal nares present Mouth: Normal oral and palatal mucosa present and moist mucous membranes Teeth and gingiva: dentition normal Throat: Yes posterior oropharynx normal Eyes General: appearance normal, both eyes and all related structures Pupils: Equal, round and reactive pupils present EOM: EOMs intact bilaterally Neck Neck: Yes normal visual inspection, Yes no lymphadenopathy and Yes trachea midline Thyroid: Thyroid normal Carotids: no bruits Lymphatic: no lymphadenopathy noted Chest Chest palpation & inspection: normal inspection of the chest Resp Effort & Inspection: normal respiratory effort Auscultation: clear to auscultation bilaterally Cardio Rate: regular rate Rhythm: regular rhythm Heart sounds: S1 normal heart sound present, S2 normal heart sound present, no gallops, no murmurs and no rubs Bruits: no abdominal aortic bruits and no carotid bruits GI Palpation (GI): No Abdominal aortic bruit present, Soft to palpation, nontender, No hepatosplenomegaly present and No Rebound tenderness present Auscultation: normal bowel sounds General: Yes no CVA tenderness Back/Spine/Pelvis Back: no CVA tenderness Cervical Spine: cervical ROM normal and No Cervical spine tenderness Thoracic/Lumbar Spine: thoraco-lumbar ROM normal, No pain with thoraco-lumbar ROM, No thoracic spinal tenderness and No lumbar spinal tenderness Skin Lesions: no lesions Rashes: no rashes Trauma: no lacerations or abrasions Wounds: no wounds Nails: normal Neuro General: patient oriented x3 and gait normal Cranial nerves: Yes Equal, round and reactive pupils present Cognition (Neuro): normal cognition Gait exam (Neuro): Normal gait present Motor exam (neuro): 5/5 motor strength present throughout Sensory Exam: No Sensory deficit (Neuro) Deep tendon reflexes (DTR's): Right patellar reflex intensity grade: 2+ and Left patellar reflex intensity grade: 2+ Extrem General: Yes normal to inspection and No edema Psych Appearance: grossly normal Affect: normal affect Attitude: cooperative Thought process: Normal thought process present Assessment and Plan Assessment & Plan (1) GERD (gastroesophageal reflux disease): Code(s): K21.9 - Gastro-esophageal reflux disease without esophagitis Plan: Ongoing?GERD. Omeprazole?has?helped Will?continue Follow-up?with?Gastroenterology?as?recommended (2) Cough: Code(s): R05.9 - Cough, unspecified Plan: Unclear?if?trial?of?omeprazole?helped?with?cough?though?it?did?help?with?GERD Check?PFTs Advised?smoking?cessation (3) Smoker: Code(s): F17.200 - Nicotine dependence, unspecified, uncomplicated Plan: Advised?smoking?cessation?and?resent script?for?nicotine?lozenges (4) Lipoma: Code(s): D17.9 - Benign lipomatous neoplasm, unspecified Plan: Patient?notes?fast?growing?lipoma?on?forehead Referred?to?dermatology (5) Sleep apnea: Code(s): G47.30 - Sleep apnea, unspecified Plan: Referred?to?Sleep?Medicine (6) Screening for prostate cancer: Code(s): Z12.5 - Encounter for screening for malignant neoplasm of prostate Plan: PSA?is?within?normal?limits (7) Screening for colon cancer: Code(s): Z12.11 - Encounter for screening for malignant neoplasm of colon (8) Adult general medical exam: Code(s): Z00.00 - Encounter for general adult medical examination without abnormal findings Plan: 48-year-old?male?presents?for?an?extended?exam Encouraged?healthy?diet?with?active?lifestyle?and?plenty?of?exercise Orders: Orders PFT pulmonary function test Today R05.9 - Cough, unspecified, R06.02 - Shortness of breath Referrals Gastroenterology Referral K21.9 - Gastro-esophageal reflux disease without esophagitis, Z12.11 - Encounter for screening for malignant neoplasm of colon Dermatology Referral D17.9 - Benign lipomatous neoplasm, unspecified Sleep Medicine Referral G47.30 - Sleep apnea, unspecified Medications: Refilled omeprazole 40 mg PO DAILY 30 days 30 caps 2RF nicotine (polacrilex) (Nicorette) 2 mg buccal Q2H 28 days 120 ea 2RF R05.9 - Cough, unspecified Coding Level of Care Code Est Pt Level 4 (09768) Diagnoses GERD (gastroesophageal reflux disease) K21.9 Cough R05.9 Smoker F17.200 Lipoma D17.9 Sleep apnea G47.30 Screening for prostate cancer Z12.5 Screening for colon cancer Z12.11 Adult general medical exam Z00.00
[2024-01-08 08:56] VITALS: BP 129/83; PULSE 78; O2SAT 96; BMI 24.5
== END 2024-01-08 10:12 | disposition home or self-care (01) ==
PROVIDERS: PCP Family Medicine; Visit Provider Family Medicine
DX: K21.9 Gastro-esophageal reflux disease without esophagitis (principal); R05.9 Cough, unspecified; F17.200 Nicotine dependence, unspecified, uncomplicated; D17.9 Benign lipomatous neoplasm, unspecified; G47.30 Sleep apnea, unspecified; Z12.5 Encounter for screening for malignant neoplasm of prostate; Z12.11 Encounter for screening for malignant neoplasm of colon; Z00.00 Encounter for general adult medical examination without abnormal findings
CPT/HCPCS: 99214

== ENCOUNTER 2024-02-05 13:12 | Outpatient (AMB) | payer MEDICARE, MEDICAID, SELFPAY ==
--- NOTE | 2024-02-05 13:13 | MHC.OFFVIS ---
Intake Vital Signs 02/05/24 13:14 Height 5 ft 7 in Weight 156 lb 8.451 oz BMI 24.5 BP 137/94 H Blood Pressure Location Lt brachial Position Sitting Pulse 76 Intake Visit Reasons: Wants to discuss EGD Intake Note: Eagle presents in the office as a new patients to discuss EGD. CC: He states that he has pains in his muscles , he gets acid reflux but omeprazole helps. Pains in his stomach near the belly button. He states that he has diarrhea but denies constipation. He states that he has had two hernia repairs in the past - both umbilical. Protection Consultant Required: No Allergies Seasonal Allergies Allergy (Severe, Verified 02/05/24 13:14) dry eyes, coughing sneezing, chest congestion. Iodinated Contrast Media [IV Dye, Iodine Containing] Allergy (Intermediate, Unverified 02/05/24 13:14) PALPITATIONS HPI HPI Comments History of Present Illness Details Here today with his girlfriend- 48-year-old male seen back in 2021 -was scheduled EGD for acid reflux as well as a colonoscopy he has never follow through. He would like to schedule an upper endoscopy. He is taking omeprazole helps somewhat however has breakthrough. He occasionally has diarrhea- inconsistent sx he has not had any constipation- he has intermittent discomfort around the umbilicus. He reportedly has had 2 umbilical hernia repairs in the past Has fibromyalgia -chronic pain- unable to work No N/V-fever or chills PFSH Medical History Fracture of fifth toe, right, open Umbilical hernia Back pain Arthritis Fibromyalgia Allergies Surgical History H/O rhinoplasty History of hernia surgery H/O left knee surgery Family History Mother Hypertension Diabetes Arthritis Social History Household Members Other:: fiance Housing: Apartment Alcohol intake: current Alcohol intake frequency: holidays/special occasions only Alcohol type: wine Patient Tobacco Use Status: Current someday Tobacco user Cigarettes Per Day: 3 Years Smoked: 20 e-Cigarette/Vaping Use: Never Used service: No Current occupational status: unemployed and disabled Current occupational exposures/hazards: No Cognitive needs: No Hearing needs: No Vision needs: No Review of Systems Const All systems reviewed & are unremarkable except as noted in HPI and below Card Denies chest pain and Denies dyspnea Resp Denies dyspnea GI Reports abdominal pain and Reports diarrhea Musc Reports arthralgias Physical Exam Vital Signs: Last Vital Signs Pulse 76 02/05/24 13:14 BP 137/94 H 02/05/24 13:14 BMI result Body Mass Index 24.5 Const General: cooperative, healthy appearing and comfortable Orientation/consciousness: patient oriented x3 Eyes Sclerae: sclerae normal Resp Effort & Inspection: normal respiratory effort and able to speak in complete sentences Auscultation: clear to auscultation bilaterally, no rales, no rhonchi and no wheezes Cardio Rate: regular rate Rhythm: regular rhythm Heart sounds: S1 normal heart sound present GI Inspection: No visible herniation Palpation (GI): Soft to palpation and nontender Auscultation: normal bowel sounds Neuro General: patient oriented x3 Extrem General: Yes full ROM Assessment & Plan Assessment & Plan (1) GERD (gastroesophageal reflux disease): Comment: anxious- reassure Code(s): K21.9 - Gastro-esophageal reflux disease without esophagitis Plan: EGD Continue ppi (2) Abdominal pain: Comment: P/E unremarkable Code(s): R10.9 - Unspecified abdominal pain (3) Change in bowel function: Comment: intermittent diarrhea- colonoscopy -may have functional component r/o IBD, other underlying cause of sx disc. procedure, rare risks, need for escort- Code(s): R19.8 - Other specified symptoms and signs involving the digestive system and abdomen Plan: colonoscopy Plan EGD/colon MG prep Orders: Orders EGD/[place] Combo - GI Use Only 02/05/24 K21.9 - Gastro-esophageal reflux disease without esophagitis, R19.8 - Other specified symptoms and signs involving the digestive system and abdomen Medications: New bisacodyl (Dulcolax (bisacodyl)) Day before procedure @ 12 noon Take 4 tablets by mouth followed by large glass of water 20 mg (4 x 5 mg) PO ONCE PRN 4 tabs 0RF colonoscopy prep 1 day Z12.11 - Encounter for screening for malignant neoplasm of colon polyethylene glycol 3350 (Miralax) Take as directed by mouth the day before your procedure. 238 grams PO ONCE PRN 238 grams 0RF laxative effect 1 day Patient Instructions: EGD/colon MG prep, reviewed and lit given Reflux precautions PPI Coding Level of Care Code Est Pt Level 3 (74826) Diagnoses GERD (gastroesophageal reflux disease) K21.9 Abdominal pain R10.9 Change in bowel function R19.8 Time Spent (min) 30
[2024-02-05 13:14] VITALS: BP 137/94; PULSE 76; BMI 24.5
== END 2024-02-05 15:08 | disposition home or self-care (01) ==
PROVIDERS: PCP Family Medicine; Visit Provider Physician Assistant
DX: K21.9 Gastro-esophageal reflux disease without esophagitis (principal); R10.9 Unspecified abdominal pain; R19.8 Other specified symptoms and signs involving the digestive system and abdomen
CPT/HCPCS: 99213

== ENCOUNTER → 2024-02-05 13:12 | Outpatient (BNVA) | payer MEDICARE, MEDICAID, SELFPAY | PROVIDERS: PCP Family Medicine; Visit Provider Physician Assistant | DX: K21.9 Gastro-esophageal reflux disease without esophagitis (principal); R10.9 Unspecified abdominal pain; R19.8 Other specified symptoms and signs involving the digestive system and abdomen | CPT/HCPCS: 99212 ==

== ENCOUNTER 2024-04-01 14:33 | Outpatient (AMB) | payer MEDICARE, MEDICAID, SELFPAY ==
--- NOTE | 2024-04-01 14:36 | A.OFFPC_ITS ---
Vital Signs 04/01/24 14:37 Height 5 ft 7 in Weight 156 lb 4 oz BMI 24.5 BP 120/64 Blood Pressure Location Lt brachial Position Sitting Pulse 78 Pulse Source Pulse Oximeter Pulse Oximetry (%) 97 Oxygen Delivery Method Room Air Intake Visit Reasons: Follow-up?chronic?conditions Intake Note: Patient is here to follow up on chronic conditions, complains of bilateral knee pain for about 3 weeks, and muscle aches everywhere. Patient is requesting refill of Duloxetine, eye drops, and baby aspirin. Allergies Seasonal Allergies Allergy (Severe, Verified 04/01/24 14:38) dry eyes, coughing sneezing, chest congestion. Iodinated Contrast Media [IV Dye, Iodine Containing] Allergy (Intermediate, Unverified 04/01/24 14:38) PALPITATIONS Medication List - Last Reconciled 04/01/24 by Jono Lehman MD ascorbic acid (vitamin C) 250 mg PO QDAY aspirin (Naeem Low Dose Aspirin) 81 mg PO .4 times a week bisacodyl (Dulcolax (bisacodyl)) 20 mg (4 x 5 mg) PO ONCE PRN 1 day cetirizine 10 mg PO DAILY PRN 30 days dextran 70-hypromellose (PF) 0.1-0.3 % (Natural Tears (PF)) 1 drp ophthalmic (eye) BEDTIME 30 days duloxetine 60 mg PO DAILY 90 days fluticasone propionate 50 mcg/actuation 1 spray intranasal DAILY nicotine (polacrilex) (Nicorette) 2 mg buccal Q2H 28 days omeprazole 40 mg PO DAILY 30 days polyethylene glycol 3350 (Miralax) 238 grams PO ONCE PRN 1 day Tobacco use date assessed: 01/08/24 Dental Screening Dental Screen Date: 01/08/24 HPI Follow-up?chronic?conditions HPI Details Patient?presents?for for?follow- up?chronic?conditions?including?chronic?cough,?GERD?and?smoking?cessation?and??? sleep?apnea. Had?started?him?on?omeprazo le?for?GERD?and?he?has?an?appointment?with?GI?for?colonoscopy. Unclear?if?omeprazole?has?helped?with?cough.??Chest?x-ray?was?negative. Ordered?PFT?but?he?has?not?had?this?scheduled?yet Has?appointment?scheduled?with?sleep?medicine Smoking: Also has c/o Muscle aches and knee pain. Pt has Fibromyalgia PFSH Medical History Fracture of fifth toe, right, open Umbilical hernia Back pain Arthritis Fibromyalgia Allergies Surgical History H/O rhinoplasty History of hernia surgery H/O left knee surgery Family History Mother Hypertension Diabetes Arthritis Social History Household Members Other:: fiance Housing: Apartment Alcohol intake: current Alcohol intake frequency: holidays/special occasions only Alcohol type: wine Patient Tobacco Use Status: Current someday Tobacco user Cigarettes Per Day: 3 Years Smoked: 20 e-Cigarette/Vaping Use: Never Used service: No Current occupational status: unemployed and disabled Current occupational exposures/hazards: No Cognitive needs: No Hearing needs: No Vision needs: No Questionnaire Thrive Questionnaire Date Thrive assessed: 12/14/22 ENRIQUE-7 AMB Questionnaire ENRIQUE-7 Date ENRIQUE - 7 assessed: 01/08/24 Source: Developed by Drs. Raphael Serrano, Debra Lora, Bird Duran and colleagues, with an educational christian from [email or web address]. Review of Systems Const Denies chills, Denies fatigue, Denies fever(s), Denies headache(s) and Denies weakness ENT Denies dizziness and Denies headache(s) Card Denies chest pain, Denies lightheadedness, Denies dyspnea and Denies other (Palpitations) Resp Details: Cough Denies cough, Denies dyspnea, Denies wheezing and Denies other ( shortness of breath) GI Details: See?HPI Musc Details: Bilateral?knee?pain.??Diffuse?myalgias. Denies numbness and Denies tingling Neuro Denies dizziness, Denies headache(s), Denies numbness, Denies tingling, Denies paresthesias and Denies weakness Psych Denies anxiety and Denies depression Endo Denies fatigue Aller/Immun Denies wheezing Physical exam (Primary Care) Vital Signs: Last Vital Signs Pulse 78 04/01/24 14:37 BP 120/64 04/01/24 14:37 Pulse Ox 97 04/01/24 14:37 Oxygen Delivery Method Room Air 04/01/24 14:37 BMI result Body Mass Index 24.5 Tobacco/Smoking Status: Tobacco use Status Tobacco use date assessed 01/08/24 04/01/24 14:41 Patient Tobacco Use Status Current someday Tobacco 04/01/24 14:41 e-Cigarette/Vaping Use Never Used 04/01/24 14:41 Thrive Assessment: Date of Thrive Assessment Date Thrive assessed 12/14/22 04/01/24 14:41 Const General: no acute distress and well developed Nutritional Appearance: well nourished Orientation/consciousness: patient oriented x3 HENMT Head: Yes normocephalic and Yes atraumatic Eyes General: appearance normal, both eyes and all related structures Pupils: Equal, round and reactive pupils present EOM: EOMs intact bilaterally Resp Effort & Inspection: normal respiratory effort Auscultation: clear to auscultation bilaterally Cardio Rate: regular rate Rhythm: regular rhythm Heart sounds: S1 normal heart sound present, S2 normal heart sound present, no gallops, no murmurs and no rubs Neuro General: patient oriented x3 and gait normal Cranial nerves: Yes Equal, round and reactive pupils present Extrem Other: Pain?at?ACL?and?MCL?bilaterally.??No?instability?or?drawer?signs. Psych Affect: normal affect Assessment and Plan Assessment & Plan (1) GERD (gastroesophageal reflux disease): Comment: anxious- reassure Code(s): K21.9 - Gastro-esophageal reflux disease without esophagitis Plan: Ongoing?GERD Omeprazole?helps?but?not?fully Can?also?use?sucralfate He?has?an?appointment?for?endoscopy?and?colonoscopy?with?gastroenterology (2) Cough: Code(s): R05.9 - Cough, unspecified Plan: Cough?has?improved?with?smoking?cessation?and?omeprazole Still?has?mild?cough?and?I?had?ordered?PFTs?but?these?have?not?been?done?yet.??W ill?ask?the?office?to?check?on?the?status?of?that?order. (3) Sleep apnea: Code(s): G47.30 - Sleep apnea, unspecified Plan: Has?an?upcoming?appointment?in?April?with?sleep?medicine (4) Fibromyalgia: Code(s): M79.7 - Fibromyalgia Plan: Myalgias?and?history? of?fibromyalgia.??Also?had?recent?viral?illness?though?this?has?resolved. Get?plenty?of?exercise Refilled?duloxetine (5) Bilateral knee pain: Code(s): M25.561 - Pain in right knee; M25.562 - Pain in left knee Plan: Start?physical?therapy Will?give?him?a?script?for?diclofenac?to?try?as?well (6) Myalgia: Code(s): M79.10 - Myalgia, unspecified site Plan: As?above,?recent?viral?illness Should?improve?spontaneously (7) Nicotine dependence: Code(s): F17.200 - Nicotine dependence, unspecified, uncomplicated Plan: Patient?has?quit?smoking?and?I?congratulated?on?this Orders: Orders PT Evaluation and Treatment Today M25.561 - Pain in right knee, M25.562 - Pain in left knee Medications: New sucralfate 1 g PO BID 30 days 60 tabs 1RF diclofenac sodium 1% (Arthritis Pain (diclofenac)) apply to single knee, ankle, foot; for foot includes sole/toes/top of foot 4 grams topical BID 30 days 100 grams 3RF Changed From aspirin (Naeem Low Dose Aspirin) 81 mg PO .4 times a week To aspirin (Naeem Low Dose Aspirin) 81 mg PO .4 times a week 28 days 16 tabs 4RF Refilled duloxetine 60 mg PO DAILY 90 days 90 caps 2RF M79.7 - Fibromyalgia dextran 70-hypromellose (PF) 0.1-0.3 % (Natural Tears (PF)) 1 drp ophthalmic (eye) BEDTIME 30 days 32 ea 0RF Coding Level of Care Code Est Pt Level 4 (29508) Diagnoses GERD (gastroesophageal reflux disease) K21.9 Cough R05.9 Sleep apnea G47.30 Fibromyalgia M79.7 Bilateral knee pain M25.561; M25.562 Myalgia M79.10 Nicotine dependence F17.200
[2024-04-01 14:37] VITALS: BP 120/64; PULSE 78; O2SAT 97; BMI 24.5
== END 2024-04-01 15:21 | disposition home or self-care (01) ==
PROVIDERS: PCP Family Medicine; Visit Provider Family Medicine
DX: K21.9 Gastro-esophageal reflux disease without esophagitis (principal); R05.9 Cough, unspecified; G47.30 Sleep apnea, unspecified; M79.7 Fibromyalgia; M25.561 Pain in right knee; M25.562 Pain in left knee; M79.10 Myalgia, unspecified site; F17.200 Nicotine dependence, unspecified, uncomplicated
CPT/HCPCS: 99214

== ENCOUNTER 2024-04-28 09:26 | Outpatient (AMB) | payer MEDICARE, MEDICAID, SELFPAY ==
[2024-04-28 09:33] VITALS: BP 122/88; PULSE 77; O2SAT 98
--- NOTE | 2024-04-28 09:33 | A.OFFVIS_ITS ---
Vital Signs 04/28/24 09:33 BP 122/88 Blood Pressure Location Rt brachial Position Sitting Pulse 77 Pulse Source Pulse Oximeter Pulse Oximetry (%) 98 Oxygen Delivery Method Room Air Intake Visit Reasons: [id number] Intake Note: Patient presents for follow up KARRIE Patient snores a lot at night,wakes up tired and gasping for air from his sleep. Allergies Seasonal Allergies Allergy (Severe, Verified 04/28/24 09:38) dry eyes, coughing sneezing, chest congestion. Iodinated Contrast Media [IV Dye, Iodine Containing] Allergy (Intermediate, Unverified 04/28/24 09:38) PALPITATIONS Medication List - Last Reconciled 04/28/24 by SARAH Giordano ascorbic acid (vitamin C) 250 mg PO QDAY aspirin (Naeem Low Dose Aspirin) 81 mg PO .4 times a week 28 days bisacodyl (Dulcolax (bisacodyl)) 20 mg (4 x 5 mg) PO ONCE PRN 1 day cetirizine 10 mg PO DAILY PRN 30 days dextran 70-hypromellose (PF) 0.1-0.3 % (Natural Tears (PF)) 1 drp ophthalmic (eye) BEDTIME 30 days diclofenac sodium 1% (Arthritis Pain (diclofenac)) 4 grams topical BID 30 days duloxetine 60 mg PO DAILY 90 days fluticasone propionate 50 mcg/actuation 1 spray intranasal DAILY nicotine (polacrilex) (Nicorette) 2 mg buccal Q2H 28 days omeprazole 40 mg PO DAILY 30 days polyethylene glycol 3350 (Miralax) 238 grams PO ONCE PRN 1 day sucralfate 1 g PO BID 30 days HPI Comments Details: 48-yr-old male presents for new in-person patient visit for sleep consultation. Pt reports he has a long history of snoring and witnessed gasping arousals.? Pt reports he had a sleep study several years ago, but results were inconclusive as he did not sleep during the study. He has difficulty initiating and maintaining sleep. If he wakes up in the middle of the night, it may take him an hour to fall back asleep. Endorses: GERD, sleep talking, body may briefly jerk, unrefreshing sleep,? Restless legs- restlessness, urge to move, worse in bed, milder when watching TV, creepy crawling sensation, leg cramps, sometimes when driving his right foot will become stuck/postured when driving even in a [address] or when sitting.?? Needs to rest to manage his fibromyalgia s/s. Light am headaches- used to have more headaches. Can be right or left sided a/w photophobia, phonophobia.? Chronic back pain- radiates down BLE, right foot numbness at times.? Denies: nocturia, punching/kicking, peripheral swelling/skin color changes. Sleep hygiene Takes naps- more so when in the winter. Currently not working. Wakes up around 6am, usual bedtime 10pm-12am. Drinks coffee in the am, and then rashad tea, sleepy tea, water.? He exercises when he feels better w/ his fibromyalgia- swims, sauna. [facility] Medical History (Updated 04/28/24 @ 18:22 by SARAH Giordano) Fracture of fifth toe, right, open Umbilical hernia Back pain Arthritis Fibromyalgia Allergies Surgical History (Updated 04/28/24 @ 09:40 by TESS Carrizales) H/O toe surgery H/O rhinoplasty History of hernia surgery H/O left knee surgery Family History Mother Hypertension Diabetes Arthritis Social History Household Members Other:: fiance Housing: Apartment Alcohol intake: current Alcohol intake frequency: holidays/special occasions only Alcohol type: wine Patient Tobacco Use Status: Current someday Tobacco user Cigarettes Per Day: 3 Years Smoked: 20 e-Cigarette/Vaping Use: Never Used service: No Current occupational status: unemployed and disabled Current occupational exposures/hazards: No Cognitive needs: No Hearing needs: No Vision needs: No Physical Exam Vital Signs: Last Vital Signs Pulse 77 04/28/24 09:33 BP 122/88 04/28/24 09:33 Pulse Ox 98 04/28/24 09:33 Oxygen Delivery Method Room Air 04/28/24 09:33 Const General: no acute distress Orientation/consciousness: patient oriented x3 HEENT Other: Mallampati stage 3-4 Pedunculated lesion on tip of tongue TMJ crepitus Resp Effort & Inspection: normal respiratory effort and able to speak in complete sentences Cardio Rate: regular rate Rhythm: regular rhythm Neuro Other: RUE and RLE tightness. General: patient oriented x3 and deep tendon reflexes 2+ bilaterally Cranial nerves: Yes CN's II-XII intact bilaterally Cognition (Neuro): normal cognition Deep tendon reflexes (DTR's): Right triceps reflex intensity grade: 2+, Left triceps reflex intensity grade: 2+, Rt Biceps (C5, C6): 2+, Left biceps reflex intensity grade: 2+, Right brachioradialis reflex intensity grade: 2+, Left brachioradialis reflex intensity grade: 2+, Right patellar reflex intensity grade: 2+ and Left patellar reflex intensity grade: 2+ Psych Mental Status: mental status grossly normal Speech and movement: Clear speech present Attitude: cooperative Assessment & Plan Assessment & Plan (1) Snoring: Code(s): R06.83 - Snoring Category: Medical (2) Sleep difficulties: Code(s): G47.9 - Sleep disorder, unspecified Category: Medical (3) Excessive daytime sleepiness: Code(s): G47.19 - Other hypersomnia Category: Medical (4) Lesion of tongue: Comment: pedunculated lesion on tongue Code(s): K14.8 - Other diseases of tongue Category: Medical (5) Leg cramps: Code(s): R25.2 - Cramp and spasm Category: Medical Plan Pt is advised to undergo HST sleep study to assess for sleep apnea: Will f/u with pt after study to discuss results and appropriate treatment options. Check labs for common etiologies of stiffness, leg cramps, fatigue, joint pain. For tongue lesion, will take the liberty of referring pt to general surgery. Pt advised to try an OTC mouth guard. He would likely benfit from orthodontics consult- however he does not think insurance would cover. Could consider eval at [facility] or [facility]. Pt seen in c/w Dr Mireya James. Orders: Orders TOBY Reflex Titer and Pattern Today M19.90 - Unspecified osteoarthritis, unspe cified site, R25.2 - Cramp and spasm, R53.83 - Other fatigue Rheumatoid Factor Today M19.90 - Unspecified osteoarthritis, unspecified site, R25.2 - Cramp and spasm, R53.83 - Other fatigue Creatine Kinase Total Today M19.90 - Unspecified osteoarthritis, unspecified site, R25.2 - Cramp and spasm, R53.83 - Other fatigue IRON PROFILE Today M19.90 - Unspecified osteoarthritis, unspecified site, R25.2 - Cramp and spasm, R53.83 - Other fatigue RT home sleep study Today G47.19 - Other hypersomnia, G47.9 - Sleep disorder, unspecified, R06.83 - Snoring Vitamin B12 and Folate Today M19.90 - Unspecified osteoarthritis, unspecified site, R25.2 - Cramp and spasm, R53.83 - Other fatigue Vitamin D 25-OH (D2 and D3) Today M19.90 - Unspecified osteoarthritis, unspecified site, R25.2 - Cramp and spasm, R53.83 - Other fatigue Ferritin Today M19.90 - Unspecified osteoarthritis, unspecified site, R25.2 - Cramp and spasm, R53.83 - Other fatigue Referrals General Surgery Referral K14.8 - Other diseases of tongue Coding Level of Care Code New Pt Level 4 (62496) Diagnoses Snoring R06.83 Sleep difficulties G47.9 Excessive daytime sleepiness G47.19 Lesion of tongue K14.8 Leg cramps R25.2 [place] Sleepiness Scale Questions Sitting and reading: high chance of dozing Watching TV: high chance of dozing Sitting inactive in a theater, movie etc.: slight chance of dozing As a passenger in a car for an hour without break: would never doze Lying down in the afternoon when circumstances permit: high chance of dozing Sitting and talking to someone: would never doze Sitting quietly after lunch without alcohol: high chance of dozing In a car, while stopped for a few minutes in the traffic: would never doze ESS < 10: normal, ESS > 12: pathologic: 13
== END 2024-04-28 10:17 | disposition home or self-care (01) ==
PROVIDERS: PCP Family Medicine; Visit Provider Nurse Practitioner Family
DX: R06.83 Snoring (principal); G47.9 Sleep disorder, unspecified; G47.19 Other hypersomnia; K14.8 Other diseases of tongue; R25.2 Cramp and spasm
CPT/HCPCS: 99204

== ENCOUNTER → 2024-04-28 09:26 | Outpatient (BNVA) | payer MEDICARE, MEDICAID, SELFPAY | PROVIDERS: PCP Family Medicine; Visit Provider Nurse Practitioner Family | DX: R06.83 Snoring (principal); G47.19 Other hypersomnia; G47.9 Sleep disorder, unspecified; R25.2 Cramp and spasm; K14.8 Other diseases of tongue | CPT/HCPCS: 99202 ==

== ENCOUNTER 2024-05-19 15:34 | Outpatient (AMB) | payer MEDICARE, MEDICAID, SELFPAY ==
--- NOTE | 2024-05-19 15:49 | A.OFFVIS_ITS ---
Vital Signs 05/19/24 16:02 Height 5 ft 7 in Weight 153 lb 0.013 oz BMI 24.0 BP 114/82 Blood Pressure Location Lt brachial Position Sitting Pulse 68 Pulse Source Pulse Oximeter Pulse Oximetry (%) 99 Oxygen Delivery Method Room Air Intake Visit Reasons: abd pain and GERD Intake Note: Eagle presents in office today for a requested office visit. Pt typically sees Isatu Valero, however; appt was deemed to be urgent. CC: Pt has been experiencing a moderate to severe amount of abdominal pain and reflux. Pt reports onset of worsening sx over the course of the last few weeks. Pt reports having UQ abdominal pain B/L. Pt also reports having severe reflux with any intake regardless of the contents. Transportation Analyst Required: No Accompanied by: Significant Other Allergies Seasonal Allergies Allergy (Severe, Verified 05/27/24 13:49) dry eyes, coughing sneezing, chest congestion. Iodinated Contrast Media [IV Dye, Iodine Containing] Allergy (Intermediate, Verified 05/27/24 13:49) PALPITATIONS HPI HPI abd pain and GERD: Details: LAST VISIT WITH DASH VALERO 02/05/2024 Assessment & Plan (1) GERD (gastroesophageal reflux disease): Comment: anxious- reassure Code(s): K21.9 - Gastro-esophageal reflux disease without esophagitis Plan: EGD Continue ppi (2) Abdominal pain: Comment: P/E unremarkable Code(s): R10.9 - Unspecified abdominal pain (3) Change in bowel function: Comment: intermittent diarrhea- colonoscopy -may have functional component r/o IBD, other underlying cause of sx disc. procedure, rare risks, need for escort- Code(s): R19.8 - Other specified symptoms and signs involving the digestive system and abdomen Plan: colonoscopy TODAY'S VISIT Patient is here today for requested visit. His GI specialist not available to see him. Patient requests had to be seen by anyone. Patient reports to have continue epigastric discomfort despite taking omeprazole. Patient reports that he is trying to avoid certain food and he continues to have symptoms. Reports epigastric pain in the upper and bilaterally right and left upper quadrant. Patient reports postprandial abdominal bloating. Patient reports occasional postprandial loose stools and then constipation. Patient not sure if it is related to what he eats. Patient denies any melena, hematochezia, unintentional weight loss or ribbon like stools. Patient has upper endoscopy and colonoscopy scheduled for August Medical History Fracture of fifth toe, right, open Umbilical hernia Back pain Arthritis Fibromyalgia Allergies Surgical History H/O toe surgery H/O rhinoplasty History of hernia surgery H/O left knee surgery Family History Mother Hypertension Diabetes Arthritis Social History Household Members Other:: fiance Housing: Apartment Alcohol intake: current Alcohol intake frequency: holidays/special occasions only Alcohol type: wine Patient Tobacco Use Status: Current someday Tobacco user Cigarettes Per Day: 3 Years Smoked: 20 e-Cigarette/Vaping Use: Never Used service: No Current occupational status: unemployed and disabled Current occupational exposures/hazards: No Cognitive needs: No Hearing needs: No Vision needs: No Review of Systems Const Denies weight gain and Denies weight loss ENT Reports no additional complaints, Denies dysphagia and Denies odynophagia Card Reports no additional complaints Resp Reports no additional complaints GI Reports abdominal pain (Epigastric right upper and left upper quadrant), Denies belching, Denies melena, Reports bloating, Reports change in bowel habits, Denies dysphagia, Denies excessive flatus, Denies dyspepsia, Denies heartburn, Denies diarrhea, Reports loose stools, Denies nausea, Denies odynophagia and Denies vomiting Reports no additional complaints Musc Reports no additional complaints Neuro Reports no additional complaints Psych Reports no additional complaints Endo Reports no additional complaints Physical Exam Vital Signs: Last Vital Signs Pulse 68 05/19/24 16:02 BP 114/82 05/19/24 16:02 Pulse Ox 99 05/19/24 16:02 Oxygen Delivery Method Room Air 05/19/24 16:02 BMI result Body Mass Index 24.0 Const General: healthy appearing, no acute distress and well developed Nutritional Appearance: well nourished Orientation/consciousness: patient oriented x3 Resp Effort & Inspection: normal respiratory effort, able to speak in complete sentences, no tracheal deviation and symmetric chest movement Auscultation: clear to auscultation bilaterally Cardio Rate: regular rate GI Inspection: Yes normal to inspection and No distended Palpation (GI): Soft to palpation, not firm, nontender and No hepatosplenomegaly present Auscultation: normal bowel sounds General: Yes no CVA tenderness Back/Spine/Pelvis Back: no CVA tenderness Skin General skin exam: elasticity normal, turgor normal and dry skin Neuro General: patient oriented x3 Psych Appearance: grossly normal Mental Status: mental status grossly normal Assessment & Plan Assessment & Plan (1) GERD (gastroesophageal reflux disease): Code(s): K21.9 - Gastro-esophageal reflux disease without esophagitis Category: Medical Qualifiers: Esophagitis presence: esophagitis presence not specified Qualified Code(s): K21.9 - Gastro-esophageal reflux disease without esophagitis (2) Abdominal pain: Code(s): R10.9 - Unspecified abdominal pain Category: Medical Qualifiers: Abdominal location: upper abdomen, unspecified Qualified Code(s): R10.10 - Upper abdominal pain, unspecified (3) Change in bowel function: Code(s): R19.8 - Other specified symptoms and signs involving the digestive system and abdomen Category: Medical (4) Postprandial epigastric pain: Code(s): R10.13 - Epigastric pain Plan Patient will stop omeprazole and start Nexium in the morning half an hour before breakfast. May take famotidine at bedtime. Discussed with patient avoiding dietary triggers and late night snacking. Staying upright for minimum 3 hours after meals discussed with patient. Patient will follow-up with his GI provider after the procedure. Patient will call our office if he will have any GI concerning symptoms. High-fiber diet discussed with patient may take [id number] fiber supplements daily. Patient is agreeable to this plan and verbalizes understanding of instructions. He was given the opportunity to ask q uestions and all questions answered. Thank you for allowing me to participate in his care Orders: Orders Vitamin D 25-OH (D2 and D3) 05/19/24 E55.9 - Vitamin D deficiency, unspecified Vitamin B12 and Folate 05/19/24 R19.7 - Diarrhea, unspecified Medications: New esomeprazole magnesium (Nexium) 40 mg PO DAILY 30 caps 5RF K21.9 - Gastro- esophageal reflux disease without esophagitis famotidine (Pepcid) 20 mg PO BEDTIME 30 tabs 3RF K21.9 - Gastro-esophageal reflux disease without esophagitis methylcellulose (laxative) (Citrucel) take it with full glass of water 500 mg PO DAILY 30 tabs 2RF K59.00 - Constipation, unspecified Discontinued omeprazole Discontinued Reason: Doctor's Order 40 mg PO DAILY 30 days 30 caps 2RF sucralfate Discontinued Reason: Doctor's Order 1 g PO BID 30 days 60 tabs 1RF Coding Level of Care Code Est Pt Level 3 (09102) Diagnoses Gastroesophageal reflux disease, unspecified whether esophagitis present K21.9 Esophagitis presence: esophagitis presence not specified Pain of upper abdomen R10.10 Abdominal location: upper abdomen, unspecified Change in bowel function R19.8 Postprandial epigastric pain R10.13 Time Spent (min) 30 Comment 20 minutes spent with patient and additional 10 minutes spent reviewing his records
[2024-05-19 16:02] VITALS: BP 114/82; PULSE 68; O2SAT 99; BMI 24.0
== END 2024-05-19 16:45 | disposition home or self-care (01) ==
PROVIDERS: PCP Family Medicine; Visit Provider Nurse Practitioner Family
DX: K21.9 Gastro-esophageal reflux disease without esophagitis (principal); R10.10 Upper abdominal pain, unspecified; R19.8 Other specified symptoms and signs involving the digestive system and abdomen; R10.13 Epigastric pain
CPT/HCPCS: 99213

== ENCOUNTER → 2024-05-19 15:34 | Outpatient (BNVA) | payer MEDICARE, MEDICAID, SELFPAY | PROVIDERS: PCP Family Medicine; Visit Provider Nurse Practitioner Family | DX: K21.9 Gastro-esophageal reflux disease without esophagitis (principal); R19.8 Other specified symptoms and signs involving the digestive system and abdomen; R10.13 Epigastric pain | CPT/HCPCS: 99212 ==

== ENCOUNTER 2024-05-22 10:50 | Outpatient (REF) | payer MEDICARE, MEDICAID, SELFPAY ==
[2024-05-22 12:31] LABS: Rheumatoid Factor < 13.0 IU/mL (<15.0)
[2024-05-22 12:36] LABS: Iron 130 mcg/dL (45-160); Percent Iron Saturation 42 % (15-50); Total Iron Binding Capacity 313 mcg/dL (228-428); Unsaturated Iron Binding 183 ug/dL
[2024-05-22 12:42] LABS: Ferritin 90 ng/mL (20-250)
[2024-05-22 12:54] LABS: Folate 12.8 ng/mL (> or = 4.0); Vitamin B12 926 pg/mL (200-900)
[2024-05-25 23:27] LABS: Vitamin D 25-OH, D2 <4 ng/mL; Vitamin D 25-OH, D3 25 ng/mL; Vitamin D 25-OH, Total 25 ng/mL (30-100)
[2024-05-27 15:27] LABS: Anti Nuclear Antibody Screen NEGATIVE (NEGATIVE)
== END 2024-05-22 10:51 | disposition home or self-care (01) ==
LOC: HO.LAB 10:50
PROVIDERS: PCP Family Medicine; Visit Provider Nurse Practitioner Family
DX: M19.90 Unspecified osteoarthritis, unspecified site (principal); R53.83 Other fatigue; R25.2 Cramp and spasm
CPT/HCPCS: 36415; 82306; 82550; 82607; 82728; 82746; 83540; 86038; 86431

== ENCOUNTER 2024-05-27 13:42 | Outpatient (AMB) | payer MEDICARE, MEDICAID, SELFPAY ==
--- NOTE | 2024-05-27 13:43 | A.OFFVIS_ITS ---
Vital Signs 05/27/24 13:49 Height 5 ft 7 in Weight 148 lb BMI 23.2 BP 114/77 Blood Pressure Location Rt brachial Position Sitting Pulse 66 Intake Visit Reasons: Pedunculated lesion tip of tongue Intake Note: Patient referred by Tootie Gillette SHOVEL OPERATOR for pedunculated lesion on tip of tongue. Present for 7yrs. Denies prior trauma to area. Patient c/o: enlarging, swollen, itchy. No hx of skin ca. Curb Hop Required: No Accompanied by: spouse Tasha Allergies Seasonal Allergies Allergy (Severe, Verified 05/27/24 13:49) dry eyes, coughing sneezing, chest congestion. Iodinated Contrast Media [IV Dye, Iodine Containing] Allergy (Intermediate, Verified 05/27/24 13:49) PALPITATIONS HPI Comments Details: Patient presents with his significant other for evaluation of a growth limited to his tongue. He has had this approximately 10 years time. It is increasing in size, become more symptomatic. He would like to have removed. No such lesions elsewhere. Chart was reviewed and patient evaluate [facility] Medical History Fracture of fifth toe, right, open Umbilical hernia Back pain Arthritis Fibromyalgia Allergies Surgical History H/O toe surgery H/O rhinoplasty History of hernia surgery H/O left knee surgery Family History Mother Hypertension Diabetes Arthritis Social History Household Members Other:: fiance Housing: Apartment Alcohol intake: current Alcohol intake frequency: holidays/special occasions only Alcohol type: wine Patient Tobacco Use Status: Current someday Tobacco user Cigarettes Per Day: 3 Years Smoked: 20 e-Cigarette/Vaping Use: Never Used service: No Current occupational status: unemployed and disabled Current occupational exposures/hazards: No Cognitive needs: No Hearing needs: No Vision needs: No Physical Exam Vital Signs: Last Vital Signs Pulse 66 05/27/24 13:49 BP 114/77 05/27/24 13:49 BMI result Body Mass Index 23.2 HEENT Other: Patient has a proximally 1 cm by 0.5 cm pedunculated growth protruding from the tip of his tongue Chest Other: Chest breath sounds bilaterally, HS 1 and 2 GI Other: Abdomen is soft, benign Assessment & Plan Assessment & Plan (1) Lesion of tongue: Comment: pedunculated lesion on tongue Code(s): K14.8 - Other diseases of tongue Category: Surgical Plan Because of the size and location of this process, I think the patient will be best served to have this removed in the OR. Risks, benefits, and alternatives of excision of tip of tongue growth/mass reviewed with the patient and the significant other and included but not limited to bleeding, infection, recurrence, numbness, pain, scarring and the patient wishes to proceed. All questions answered. Arrangements were made for this. Coding Level of Care Code New Pt Level 5 (71183) Diagnoses Lesion of tongue K14.8
[2024-05-27 13:49] VITALS: BP 114/77; PULSE 66; BMI 23.2
== END 2024-05-27 14:06 | disposition home or self-care (01) ==
PROVIDERS: PCP Family Medicine; Referring Provider Nurse Practitioner Family; Visit Provider Surgery
DX: K14.8 Other diseases of tongue (principal)
CPT/HCPCS: 99204

== ENCOUNTER → 2024-05-27 13:42 | Outpatient (BNVA) | payer MEDICARE, MEDICAID, SELFPAY | PROVIDERS: PCP Family Medicine; Referring Provider Nurse Practitioner Family; Visit Provider Surgery | DX: K14.8 Other diseases of tongue (principal) | CPT/HCPCS: 99202 ==

== ENCOUNTER 2024-06-05 09:23 | Day surgery (SDC) | payer MEDICARE, MEDICAID, SELFPAY ==
[2024-06-05 10:20] VITALS: BMI 22.7
[2024-06-05 10:38] VITALS: BP 135/83; PULSE 54; RESP 15; TEMP 36.8; O2SAT 98
--- NOTE | 2024-06-05 11:02 | MHC.SHP ---
Pre-Procedural Eval Section A - 24 Hr Update-Section A only Date of Service: 06/05/24 The patient is an INPATIENT: No Changes since office visit: No Cold of Flu in the past 2 weeks, No New Medical Problems, No Changes in Medication and No Patient answered all questions The patient has been examined within 24 hours of the surgical procedure. The History & Physical has been completed within 30 days and I have reviewed it.: Yes Section B - Complete if H&P > 30 days Chief Complaint: Other diseases of tongue Allergies: Allergies Allergy/AdvReac Type Severity Reaction Status Date / Time Seasonal Allergies Allergy Severe dry eyes, Verified 06/05/24 10:17 coughing sneezing, chest congestion. Iodinated Contrast Media Allergy Intermediate PALPITATION Verified 06/05/24 10:17 [IV Dye, Iodine Containing] S Plan I have reviewed the history and physical and performed a pertinent physical examination on my patient. No changes have occurred unless specified. Time Spent With Patient Time: Total time managing care of this patient today ____ minutes.
[2024-06-05] MEDS: Lactated Ringers 1,000 ML 50 ML IVCONT (12:07)
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
[2024-06-05 13:36] VITALS: BP 132/96; PULSE 77; RESP 18; TEMP 36.2; O2SAT 97
--- NOTE | 2024-06-05 13:36 | W.PM.OPN ---
Operative Note Operative Note Date of Service: 06/05/24 Narrative: Preoperative diagnosis: [] Pedunculated exophytic growth of tip of tongue Postop diagnosis: [] The same Procedure [] excision tip of tongue growth Surgeon: [] Farzad Cardiovascular Disease Specialist: [] Camron Type of Anesthesia: [] General Indication for surgery: [] Roughly 2 x 1 cm exophytic growth of the tip of the tongue Findings: [] Patient brought to the operating room, placed on operative table in supine position, and after an adequate level of general anesthesia was induced, the tongue was grasped and brought on the field and using a Bovie, excision of the process was uneventfully performed. Specimen sent to pathology. Wound was irrigated, secured hemostasis, and closed using interrupted 2-0 chromic sutures. Patient tolerated procedure well. Sponge, needle, and instrument counts reported correct. Patient tolerated the procedure well and emerged from anesthesia stable condition. EBL minimal
[2024-06-05 13:41] VITALS: BP 127/91; PULSE 73; RESP 18; O2SAT 97
[2024-06-05 13:46] VITALS: BP 126/98; PULSE 75; RESP 16; O2SAT 97
[2024-06-05 13:51] VITALS: BP 124/91; PULSE 68; RESP 16; O2SAT 97
[2024-06-05 14:06] VITALS: BP 136/89; PULSE 70; RESP 16; TEMP 36.2; O2SAT 99
== END 2024-06-05 14:37 | disposition home or self-care (01) ==
PROVIDERS: Pathology Cytopathology; PCP Family Medicine; Visit Provider Surgery
PROC: (CPT 41112; principal; 2024-06-05 12:20)
DX: K14.8 Other diseases of tongue (principal); M79.7 Fibromyalgia; M54.9 Dorsalgia, unspecified; M19.90 Unspecified osteoarthritis, unspecified site; J30.2 Other seasonal allergic rhinitis; Z79.899 Other long term (current) drug therapy; Z91.041 Radiographic dye allergy status; Z98.890 Other specified postprocedural states; F17.210 Nicotine dependence, cigarettes, uncomplicated; Z56.0 Unemployment, unspecified
CPT/HCPCS: 41112; 87624; 88304; 88305; 88312; 88365; J0330; J0690; J1100; J2250; J2405; J2704; J2795; J3010

== ENCOUNTER → 2024-06-05 09:23 | Outpatient (BNV) | payer MEDICARE, MEDICAID, SELFPAY | PROVIDERS: PCP Family Medicine; Visit Provider Surgery | DX: K14.8 Other diseases of tongue (principal) | CPT/HCPCS: 41112 ==

== ENCOUNTER 2024-06-16 11:49 | Outpatient (AMB) | payer MEDICAID, SELFPAY ==
--- NOTE | 2024-06-16 11:51 | A.OFFVIS_ITS ---
Intake Visit Reasons: S/P WLE tongue lesion Intake Note: Patient here s/p WLE tongue lesion. Reports incision healing well. Patient c/o: slightly uncomfortable. Denies bleeding, oozing. WLE tip pf tongue: 06-05-2024. Caramel Coloring Operator Required: No Accompanied by: Self / Same As Patient Allergies Seasonal Allergies Allergy (Severe, Verified 06/16/24 11:52) dry eyes, coughing sneezing, chest congestion. Iodinated Contrast Media [IV Dye, Iodine Containing] Allergy (Intermediate, Verified 06/16/24 11:52) PALPITATIONS HPI Comments Details: Patient presents for follow-up. Aside from incisional discomfort the beginning, patient is doing quite well on now. He is tolerating regular diet. He has no further tongue issues or complaints. Pathology is benign [facility] Medical History GERD (gastroesophageal reflux disease) Fracture of fifth toe, right, open Umbilical hernia Back pain Arthritis Fibromyalgia Allergies Surgical History Hx of surgical procedure (06/05/24) H/O toe surgery H/O rhinoplasty History of hernia surgery H/O left knee surgery Family History Mother Hypertension Diabetes Arthritis Social History Household Members Other:: fiance Housing: Apartment Alcohol intake: current Alcohol intake frequency: holidays/special occasions only Alcohol type: wine Patient Tobacco Use Status: Current someday Tobacco user Tobacco use type: Cigarette Cigarettes Per Day: 3 Years Smoked: 20 e-Cigarette/Vaping Use: Never Used service: No Current occupational status: unemployed and disabled Current occupational exposures/hazards: No Cognitive needs: No Hearing needs: No Vision needs: No Physical Exam HEENT Other: Tongue wound well healed. Assessment & Plan Assessment & Plan (1) Postop check: Code(s): Z09 - Encounter for follow-up examination after completed treatment for conditions other than malignant neoplasm Category: Surgical Plan Patient has been given local instructions, and will follow-up p.r.n. Coding Level of Care Code Global (01480) Diagnoses Postop check Z09
== END 2024-06-16 11:56 | disposition home or self-care (01) ==
LOC: HO.HGS 11:49
PROVIDERS: PCP Family Medicine; Visit Provider Surgery
DX: Z09 Encounter for follow-up examination after completed treatment for conditions other than malignant neoplasm (principal)
CPT/HCPCS: 99024

== ENCOUNTER → 2024-06-16 11:49 | Outpatient (BNVA) | payer MEDICAID, SELFPAY | PROVIDERS: PCP Family Medicine; Visit Provider Surgery | DX: Z09 Encounter for follow-up examination after completed treatment for conditions other than malignant neoplasm (principal); Z98.890 Other specified postprocedural states | CPT/HCPCS: 99212 ==

== ENCOUNTER 2024-08-20 09:43 | Day surgery (SDC) | payer MEDICARE, MEDICAID, SELFPAY ==
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
--- OUTSIDE RECORDS SUMMARY | 2024-08-20 09:45 | XMS_ITS | Continuity of Care Document ---
Demographics Address [address] [place] [address] Mobile Email Address Preferred Language Lithuanian Marital Status Single Islam Affiliation None Race White Ethnic Group Not or Lati no Author Organization [facility] Address [address] [place] [address]- Care Team Providers Care Custodial Operations Manager Name Role Phone Fallon CARTY, Jono Cassidy Primary Care Physician [phone] Encounter [facility] Date(s): 05/23/24 - 06/22/24 [facility] [address] [place] [address]- Attending Physician: Deepali Juárez Admitting Physician: Deepali Juárez Referring Physician: Deepali Juárez Allergies, Adverse Reactions, Alerts Substance Reaction Severity Status Contrast Dye 1 See Comments Active 1Pt states he had an injection for an exam years ago and he developed a bad reaction to it, pt isn'tsure if it was IV contrast that he had. Medications aspirin 81 mg oral tablet 1 tablet = 81 mg, By Mouth, Daily, 0 Refills, Maintenance, 12/06/18 8:04:57 EST Start Date: 12/06/18 Status: Ordered Benadryl 25 mg oral capsule 1 capsule = 25 mg, By Mouth, 3 times a day, PRN for allergy symptoms, # 30 capsule, 0 Refills, Maintenance, 05/23/24 11:50:00 EDT, Capsule, [facility] #[id number], Partial fill upon patient request if the prescription is for a schedule II opioid... Start Date: 05/23/24 Status: Ordered duloxetine 60 mg oral enteric coated capsule 1 capsule = 60 mg, By Mouth, Daily, # 30 capsule, 0 Refills, Maintenance, 05/27/21 11:22:00 EDT, [facility], Partial fill upon patient request if the prescription is for a schedule II opioid drug. Start Date: 05/27/21 Status: Ordered Lidoderm 5% film 1 patch, Topically, Daily, # 10 patch, 0 Refills, Maintenance, 02/04/20 16:56:00 EDT, [facility] #[id number], 1 patch Topically Daily,x10 days, 173, cm, 02/04/20 14:38:00 EDT, Height, 66.7, kg, 02/04/20 14:38:00 EDT, Dry Weight Start Date: 02/04/20 Stop Date: 02/14/20 Status: Ordered Multivitamin 1 tablet, By Mouth, Daily, 0 Refills, Maintenance Start Date: 10/12/10 Status: Ordered Nexium 20 mg oral enteric coated capsule 1 capsule = 20 mg, By Mouth, Daily, # 30 capsule, 0 Refills, Maintenance, 05/23/24 9:34:00 EDT, [facility], Partial fill upon patient request if the prescription is for a schedule II opioid drug. Start Date: 05/23/24 Status: Ordered Saline Mist 0.65% nasal spray 2 sprays, Nares, Both, 4 times a day, # 60 mL, 3 Refills, Maintenance, 02/02/21 11:03:00 EST, [facility] #[id number], Partial fill upon patient request if the prescription is for a schedule II opioid drug., 2 sprays Nares, Both 4 times a day, 172... Start Date: 02/02/21 Status: Ordered Problem List Condition Confirmation Course Effective Dates Status H ealth Status Informant Anginal pain 1 Confirmed Active Chronic abdominal pain Confirmed Active Environmental allergies Confirmed Active Fibromyalgia affecting multiple sites Confirmed Active Anxiety and depression Confirmed Active 12 times per week Social History Social History Type Response Tobacco Use: 4 or less cigar ettes(less than 1/4 pack)/day in last 30 days. Sex Implantable Device List Procedure Provider Procedure Date Device Type Site Graft Cartilage Aakash Kramer MD 02/02/21 Unknown N ose Device Identifier Serial Number Lot or Batch Number Manufacturing Date Expiration Date Distinct Identification Code MRI Safety Implantable Status Assigning Authority Unknown [id number] Unknown Unknown 12/13/25 Unknown Unknown Active Unknown Patient Care team information Care Team Personnel Name: Jono Lehman MD Position: S Outreach Member Role: PCP Address: Address: [address] [place] [address] Care Team Related Persons Name: FELIZSANDIRADHA Caballero Address: [address] [place] [address] Name: ABDOUL MARQUEZ Address: home [address] [address] Name: GETACHEW MARQUEZ Address: home [address] [place] [id number] Name: DREA BOOGIE Address: [address] [place] [address]
[2024-08-20 10:30] VITALS: BMI 23.4
[2024-08-20 10:35] VITALS: BP 137/98; PULSE 72; RESP 16; TEMP 36.7; O2SAT 97
--- NOTE | 2024-08-20 10:47 | P.HPSUR_ITS ---
Pre-Procedural Eval Section A - 24 Hr Update-Section A only Date of Service: 08/20/24 Section B - Complete if H&P > 30 days Chief Complaint: Other specified symptoms and signs involving the Relevant Family History (Specify if Yes): No Relevant Social History: Tobacco Use Present Medications: see Short Stay Collaborative assessment Medical History: Significant History (GERD (gastroesophageal reflux disease) Fracture of fifth toe, right, open Umbilical hernia Back pain Arthritis Fibromyalgia Allergies) History of Previous Operations: Relevant previous surgery/procedure and date(s) (Hx of surgical procedure (06/05/24) H/O toe surgery H/O rhinoplasty History of hernia surgery H/O left knee surgery) Allergies: Allergies Allergy/AdvReac Type Severity Reaction Status Date / Time Seasonal Allergies Allergy Severe dry eyes, Verified 06/16/24 11:52 coughing sneezing, chest congestion. Iodinated Contrast Media Allergy Intermediate PALPITATION Verified 06/16/24 11:52 [IV Dye, Iodine Containing] S Review of Systems Sugical H&P ROS: Negative: Constitution, Cardiovascular, Respiratory, Neurological, Psychiatric, Hem-Onc, Allergic/Immunologic, Gastrointestinal, Genitourinary, Musculoskeletal, Integumentary, Endocrine and Eyes /Ears/Nose/Throat Exam Surgical H&P Exam: Normal: HEENT, Normal: Heart, Normal: Lungs, Normal: Extremities, Normal: Abdomen, Normal: Skin and Normal: Neurological Plan Diagnosis/Plan: Unchanged I have reviewed the history and physical and performed a pertinent physical examination on my patient. No changes have occurred unless specified. Time Spent With Patient Time: Total time managing care of this patient today ____ minutes.
[2024-08-20] MEDS: Lactated Ringers 1,000 ML 100 ML IVCONT (10:49)
--- NOTE | 2024-08-20 11:46 | P.OPN-COLO_ITS ---
Colonoscopy Operative Note Operative Note Date of Service: 08/20/24 Narrative: Operative Information Procedure Description: EGD, Colonoscopy Indication: weight loss, abdo pain Anesthesia: MAC FLEXIBLE TRANSORAL UPPER GASTROINTESTINAL ENDOSCOPY AND COLONOSCOPY PROCEDURE NOTE UPPER ENDOSCOPY Consent: Indications for the procedure and potential complications of bleeding, perforation, reaction to medications and missed diagnosis were discussed with the patient and informed consent was obtained. Instrument: Olympus GIF H 190 J mid size upper endoscope Monitoring: Vital signs and clinical assessment, continuous EKG monitoring, Pulse oximetry, Carbon Dioxide monitoring and blood pressure monitoring were done throughout the procedure. Procedure: The patient was placed in the left lateral decubitis position and pre-procedure medications were administered and a bite block was placed. The endoscope was inserted into the mouth and advanced under direct vision to the third part of duodenum. A careful inspection was made as the upper endoscope was withdrawn including a retroflexed examination of the proximal stomach; Findings and interventions are described below. Findings: Larynx:normal Esophagus: GE junction at 40 cm, diaphragm hiatus at 40 cm, mild esophagitis and patulous GEJ, bx taken from GEJ, distal and proximal esophagus Stomach: Mild erythema. Biopsies were obtained. Grade 2 flap valve on retroflexed examination of the cardia. Duodenum: Normal bulb and descending duodenum, bx taken Intervention: Biopsies as noted above, COLONOSCOPY Instrument: Olympus variable stiffness pediatric scope 190L Colonoscopy Monitoring: Vital signs and clinical assessment, continuous EKG monitoring, Pulse oximetry, Carbon Dioxide monitoring and blood pressure monitoring were done throughout the procedure. Colon withdrawal time was 17minutes. Procedure: The patient was placed in the left lateral decubitis position and pre-procedure medications were administered. After a digital rectal examination of the ano-rectum, the video colonoscope was inserted into the rectum and advanced through the colon to the cecum/TI. The colonoscope was slowly withdrawn in a retrograde panoramic fashion and the colon mucosa was carefully examined including a retroflexed view of the rectum. Findings and interventions are described below. Procedure Difficulty:moderate Findings: Terminal Ileum-normal, random bx taken Random colon bx taken Cecum: 4 mm sessile polyp removed with cold forceps Ascending Colon: 6-8 mm sessile polyp removed with cold snare Transverse Colon - 8-9 mm sessile polyp removed with cold snare Descending Colon:normal Sigmoid Colon: 6-8 mm sessile polyp removed with cold forceps Rectum: Retroflexion with small internal hemorrhoids, grade I, x 2 sessile polyps 6-8 mm removed with cold forceps Anorectum - normal Colon preparation: [place] Bowel Preparation Scale Right colon; 2 Transverse colon: 2 Left colon; 2 (0 = Unprepared colon segment with mucosa not seen due to solid stool that cannot be cleared. 1 = Portion of mucosa of the colon segment seen, but other areas of the colon segment not well seen due to staining, residual stool and/or opaque liquid. 2 = Minor amount of residual staining, small fragments of stool and/or opaque liquid, but mucosa of colon segment seen well. 3 = Entire mucosa of colon segment seen well with no residual staining, small fragments of stool or opaque liquid) Impression and Post Procedure Diagnosis: Endoscopy Findings: mild gastritis mild esophagitis patulous GEJ Colonoscopy Findings: colon polyps internal hemorrhoids Plan: Await Pathology results Repeat Colonoscopy in 3 years due to polyps or earlier if clinically indicated High fiber diet leaflet avoid straining at stool, epsom salts and sitz bath, anusol supps or cream await bx if neg, then expand work up for sx. Above findings were reviewed with the patient and relevant handouts were provided if indicated.
[2024-08-20 12:18] VITALS: BP 107/70; PULSE 78; RESP 16; TEMP 36.1; O2SAT 98
[2024-08-20 12:30] VITALS: BP 112/81; PULSE 61; RESP 16; O2SAT 98
[2024-08-20 12:45] VITALS: BP 127/96; PULSE 84; RESP 16; O2SAT 98
[2024-08-20 13:00] VITALS: BP 125/102; PULSE 62; RESP 16; O2SAT 98
[2024-08-20 13:15] VITALS: BP 135/98; PULSE 71; RESP 16; TEMP 36.1; O2SAT 98
== END 2024-08-20 13:50 | disposition home or self-care (01) ==
PROVIDERS: PCP Family Medicine; Visit Provider Internal Medicine Gastroenterology
PROC: (CPT 45385; principal; 2024-08-20 11:40)
DX: R19.8 Other specified symptoms and signs involving the digestive system and abdomen (principal); R10.9 Unspecified abdominal pain; D12.0 Benign neoplasm of cecum; D12.2 Benign neoplasm of ascending colon; D12.3 Benign neoplasm of transverse colon; K63.5 Polyp of colon; K64.0 First degree hemorrhoids; R10.13 Epigastric pain; K29.60 Other gastritis without bleeding; K20.80 Other esophagitis without bleeding; R14.0 Abdominal distension (gaseous); K21.9 Gastro-esophageal reflux disease without esophagitis; K42.9 Umbilical hernia without obstruction or gangrene; R63.4 Abnormal weight loss; K44.9 Diaphragmatic hernia without obstruction or gangrene; Z68.24 Body mass index [BMI] 24.0-24.9, adult; M79.7 Fibromyalgia; M19.90 Unspecified osteoarthritis, unspecified site; M54.9 Dorsalgia, unspecified; J30.2 Other seasonal allergic rhinitis; Z79.899 Other long term (current) drug therapy; F17.200 Nicotine dependence, unspecified, uncomplicated; Z91.041 Radiographic dye allergy status; Z98.890 Other specified postprocedural states
CPT/HCPCS: 45385; 45380; 43239; 88305; 88313; 88342; J1596; J2704

== ENCOUNTER → 2024-08-20 09:43 | Outpatient (BNV) | payer MEDICARE, MEDICAID, SELFPAY | PROVIDERS: PCP Family Medicine; Visit Provider Internal Medicine Gastroenterology | DX: R63.4 Abnormal weight loss (principal); K20.90 Esophagitis, unspecified without bleeding; K29.70 Gastritis, unspecified, without bleeding; K22.89 Other specified disease of esophagus; D12.2 Benign neoplasm of ascending colon; D12.0 Benign neoplasm of cecum; D12.3 Benign neoplasm of transverse colon; K62.1 Rectal polyp; D12.5 Benign neoplasm of sigmoid colon; K64.0 First degree hemorrhoids | CPT/HCPCS: 43239; 45380; 45385 ==

== ENCOUNTER 2024-12-02 08:36 | Outpatient (AMB) | payer OTHER, SELFPAY ==
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
[2024-12-02 08:49] VITALS: BP 120/78; PULSE 102; RESP 14; TEMP 36.6; O2SAT 97; BMI 23.0
== END 2024-12-02 09:25 | disposition home or self-care (01) ==
PROVIDERS: PCP Family Medicine; Visit Provider Family Medicine
DX: S06.0XAA Concussion with loss of consciousness status unknown, initial encounter (principal); V89.2XXA Person injured in unspecified motor-vehicle accident, traffic, initial encounter; M79.10 Myalgia, unspecified site; H10.10 Acute atopic conjunctivitis, unspecified eye; R94.31 Abnormal electrocardiogram [ECG] [EKG]; F17.200 Nicotine dependence, unspecified, uncomplicated

== ENCOUNTER → 2024-12-02 08:36 | Outpatient (BNVA) | payer OTHER, SELFPAY | PROVIDERS: PCP Family Medicine; Visit Provider Family Medicine ==

== ENCOUNTER 2025-03-09 12:03 | Outpatient (REF) | payer OTHER, SELFPAY ==
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
== END 2025-03-09 12:04 | disposition home or self-care (01) ==
LOC: HO.XRAY 12:03
PROVIDERS: PCP Family Medicine; Visit Provider Nurse Practitioner Family
DX: M25.561 Pain in right knee (principal); M25.562 Pain in left knee; Z87.828 Personal history of other (healed) physical injury and trauma
CPT/HCPCS: 73564

== ENCOUNTER 2025-03-09 12:03 | Outpatient (AMB) | payer OTHER, SELFPAY ==
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
[2025-03-09 12:09] VITALS: BP 98/69; PULSE 82; RESP 12; TEMP 36.3; O2SAT 97; BMI 22.3
== END 2025-03-09 12:31 | disposition home or self-care (01) ==
LOC: HO.HMCFM 12:03
PROVIDERS: PCP Family Medicine; Visit Provider Nurse Practitioner Family
DX: M25.561 Pain in right knee (principal); M25.562 Pain in left knee; G89.29 Other chronic pain; Z04.3 Encounter for examination and observation following other accident; V89.2XXA Person injured in unspecified motor-vehicle accident, traffic, initial encounter

== ENCOUNTER → 2025-03-09 13:17 | Outpatient (BNV) | payer OTHER, SELFPAY | PROVIDERS: PCP Family Medicine; Visit Provider Radiology Diagnostic Radiology | DX: M25.561 Pain in right knee (principal); M25.562 Pain in left knee | CPT/HCPCS: 73564 ==

== ENCOUNTER 2025-04-23 15:47 | Outpatient (AMB) | payer MEDICARE, MEDICAID, SELFPAY ==
--- NOTE | 2025-04-23 15:57 | MHC.OFFWIV ---
Intake Vital Signs 04/23/25 15:58 Height 5 ft 8 in Weight 146 lb BMI 22.2 BP 106/70 Blood Pressure Location Rt brachial Position Sitting Pulse 92 Pulse Source Pulse Oximeter Temp 98.3 F Temp Source Oral Pulse Oximetry (%) 96 Oxygen Delivery Method Room Air Intake Visit Reasons: EP Diarrhea, stomach discomfort Patient Tobacco Use Status: Current everyday Tobacco user Allergies Seasonal Allergies Allergy (Severe, Verified 04/23/25 16:00) dry eyes, coughing sneezing, chest congestion. Iodinated Contrast Media [IV Dye, Iodine Containing] Allergy (Intermediate, Verified 04/23/25 16:00) PALPITATIONS Do you need a note to return to daycare/school/sports/work: Yes HPI HPI Comments History of Present Illness Details This is a 49-year-old male with a past medical history fibromyalgia presenting for evaluation of diarrhea. Patient states he has had 3-4 episodes of diarrhea daily since Sunday night and has been taking Pepto-Bismol for relief of his discomfort. He states that his stool has started to appear dark. Patient has had nausea without vomiting and denies any urinary symptoms. Patient is also complaining of upper abdominal pain, but denies chest pain, back pain or shortness of breath. [facility] Medical History GERD (gastroesophageal reflux disease) Fracture of fifth toe, right, open Umbilical hernia Back pain Arthritis Fibromyalgia Allergies Surgical History Hx of surgical procedure (06/05/24) H/O toe surgery H/O rhinoplasty History of hernia surgery H/O left knee surgery Family History Mother Hypertension Diabetes Arthritis Social History Household Members Other:: fiance Housing: Apartment Are you a primary chiropractic care to a significant other at home: No Do you presently have visiting nurse or other home services: No Alcohol intake: current Alcohol intake frequency: holidays/special occasions only Alcohol type: wine Patient Tobacco Use Status: Current everyday Tobacco user Tobacco use type: Cigarette Cigarette Packs Per Day: 4 Cigarettes Per Day: 80.0 Years Smoked: 20 e-Cigarette/Vaping Use: Never Used service: No Current occupational status: unemployed and disabled Current occupational exposures/hazards: No Cognitive needs: No Hearing needs: No Vision needs: No Review of Systems Const All systems reviewed & are unremarkable except as noted in HPI and below Reports no additional complaints Eyes Reports no additional complaints ENT Reports no additional complaints Card Reports no additional complaints Resp Reports no additional complaints GI Reports abdominal pain, Reports belching, Denies melena, Denies bloating, Denies hematochezia, Denies dyspepsia, Reports diarrhea, Reports loose stools, Reports nausea and Denies vomiting Reports no additional complaints Musc Reports no additional complaints Skin/Breast Reports system reviewed and no additional complaints, except as documented Neuro Reports no additional complaints Psych Reports no additional complaints Endo Reports no additional complaints Tc/Lymph Reports no additional complaints Aller/Immun Reports no additional complaints Physical Exam Vital Signs: Last Vital Signs Temp 98.3 F 04/23/25 15:58 Pulse 92 04/23/25 15:58 BP 106/70 04/23/25 15:58 Pulse Ox 96 04/23/25 15:58 Oxygen Delivery Method Room Air 04/23/25 15:58 BMI result Body Mass Index 22.2 Const General: cooperative, healthy appearing, comfortable, no acute distress, well developed, alert, awake and Physically active Nutritional Appearance: average body habitus Orientation/consciousness: patient oriented x3 Limitations: no limitations Resp Effort & Inspection: normal respiratory effort Auscultation: clear to auscultation bilaterally Cardio Rate: regular rate Rhythm: regular rhythm GI Inspection: No distended and No Abdominal panniculus present Palpation (GI): Soft to palpation, Tenderness to palpation present (GI) in the epigastrum; not in the LUQ and not in the RUQ, no guarding, No hepatosplenomegaly present and No Rebound tenderness present Auscultation: normal bowel sounds General: Yes Bimanual renal exam normal bilaterally and Yes bladder normal to palpation Skin General skin exam: no rashes or lesions noted Neuro General: patient oriented x3 Psych Appearance: grossly normal Mental Status: mental status grossly normal Insight: Good insight present (Psych) Judgement: Good judgement present (Psych) Assessment & Plan Assessment & Plan (1) GERD (gastroesophageal reflux disease): Comment: Patient states he has a long history of gastroesophageal reflux disease however does not currently take any medication for treatment. Given that patient is taking Pepto-Bismol in his stool appears dark, this finding is most likely related to Pepto-Bismol and not an upper GI bleed. Regardless, patient will be placed on a PPI. Additionally, patient is requesting a refill of his natural tears for dry eye. Code(s): K21.9 - Gastro-esophageal reflux disease without esophagitis Qualifiers: Esophagitis presence: esophagitis presence not specified Qualified Code(s): K21.9 - Gastro-esophageal reflux disease without esophagitis Plan: Omeprazole 40 mg daily times 14 days. Patient will follow up with his primary care provider regarding ongoing treatment thereafter. Medications: New omeprazole 40 mg PO DAILY 14 caps 0RF Changed From dextran 70-hypromellose (PF) 0.1-0.3 % (Natural Tears (PF)) 1 drp ophthalmic (eye) BEDTIME 30 days 32 ea 0RF To dextran 70-hypromellose (PF) 0.1-0.3 % (Natural Tears (PF)) 1 drp ophthalmic (eye) BID 30 days 32 ea 0RF Coding Level of Care Code Est Pt Level 3 (26018) Diagnoses Gastroesophageal reflux disease, unspecified whether esophagitis present K21.9 Esophagitis presence: esophagitis presence not specified Time Spent (min) 25
[2025-04-23 15:58] VITALS: BP 106/70; PULSE 92; TEMP 36.8; O2SAT 96; BMI 22.2
== END 2025-04-23 16:36 | disposition home or self-care (01) ==
PROVIDERS: PCP Family Medicine; Visit Provider Physician Assistant
DX: K21.9 Gastro-esophageal reflux disease without esophagitis (principal)

== ENCOUNTER → 2025-04-23 15:47 | Outpatient (BNVA) | payer MEDICARE, MEDICAID, OTHER, SELFPAY | PROVIDERS: PCP Family Medicine; Visit Provider Physician Assistant | DX: K21.9 Gastro-esophageal reflux disease without esophagitis (principal) | CPT/HCPCS: 99212 ==

== ENCOUNTER 2025-05-13 12:02 | Outpatient (AMB) | payer MEDICARE, MEDICAID, SELFPAY ==
[2025-05-13 12:19] VITALS: BP 116/84; PULSE 63; TEMP 36.6; O2SAT 100; BMI 22.8
--- NOTE | 2025-05-13 12:19 | AM.OFFWIN_ITS ---
Intake Vital Signs 05/13/25 12:19 Height 5 ft 8 in Weight 150 lb BMI 22.8 BP 116/84 Blood Pressure Location Lt brachial Position Sitting Pulse 63 Pulse Source Pulse Oximeter Temp 97.9 F Temp Source Oral Pulse Oximetry (%) 100 Oxygen Delivery Method Room Air Intake Visit Reasons: EP Chest congestion, dizzy, loss of taste Intake Note: Pt presents to the office today for c/o chest congestion,dizziness,loss of taste x1 week. Patient Tobacco Use Status: Current everyday Tobacco user Allergies Seasonal Allergies Allergy (Severe, Verified 05/13/25 12:21) dry eyes, coughing sneezing, chest congestion. Iodinated Contrast Media (IV Dye, Iodine Containing) Allergy (Intermediate, Verified 05/13/25 12:21) PALPITATIONS HPI HPI Comments History of Present Illness Details History - The patient is a 50-year-old male pres enting with pharyngitis and associated symptoms x6 days. - Reports itchy and sore throat beginnin g last week, with voice loss. - Experiences chest congestion and dizzi ness, with occasional dizziness flashes. - Had a low-grade fever for three days, with night sweats, but did not record temperature. - Reports sinus pain and sneezing, takes cetirizine daily for allergic rhinitis. - Denies shortness of breath or wheezing , reports fatigue. Physical Exam General: Cooperative, healthy appearing, comfortable and no acute distress Orientation/consciousness: Patient oriented x3 Limitations: No limitations Head: Normal to inspection Ears: Hearing grossly normal bilaterally, external ears normal and TM's normal bilaterally Nose: Normal external nose present, Normal nares present and No nasal discharge present Face and sinus: Normal facial exam and Sinuses tender Mouth: Normal oral and palatal mucosa present and moist mucous membranes Throat: Yes tonsils normal, Yes uvula midline. Posterior oropharynx erythema, no exudates Eyes: Appearance normal, both eyes and all related structures Neck: Normal visual inspection, full ROM Respiratory: Clear to auscultation bilaterally. Normal respiratory effort, able to speak in complete sentences, Actively coughing, no respiratory distress, not tachypneic, no tripod positioning and no use of accessory muscles Cardiovascular: Regular rate and rhythm. Normal S1 and S2 Skin: No rashes or lesions noted Neuro: Patient oriented x3, reports dizziness Extremities: Normal to inspection and Yes no clubbing, cyanosis or edema [facility] Medical History GERD (gastroesophageal reflux disease) Fracture of fifth toe, right, open Umbilical hernia Back pain Arthritis Fibromyalgia Allergies Surgical History Hx of surgical procedure (06/05/24) H/O toe surgery H/O rhinoplasty History of hernia surgery H/O left knee surgery Family History Mother Hypertension Diabetes Arthritis Social History Household Members Other:: fiance Housing: Apartment Are you a primary regular senior care provider to a significant other at home: No Do you presently have visiting nurse or other home services: No Alcohol intake: current Alcohol intake frequency: holidays/special occasions only Alcohol type: wine Patient Tobacco Use Status: Current everyday Tobacco user Tobacco use type: Cigarette Cigarette Packs Per Day: 4 Cigarettes Per Day: 80.0 Years Smoked: 20 e-Cigarette/Vaping Use: Never Used service: No Current occupational status: unemployed and disabled Current occupational exposures/hazards: No Cognitive needs: No Hearing needs: No Vision needs: No Review of Systems Const All systems reviewed & are unremarkable except as noted in HPI and below Physical Exam Vital Signs: Last Vital Signs Temp 97.9 F 05/13/25 12:19 Pulse 63 05/13/25 12:19 BP 116/84 05/13/25 12:19 Pulse Ox 100 05/13/25 12:19 Oxygen Delivery Method Room Air 05/13/25 12:19 BMI result Body Mass Index 22.8 Assessment & Plan Assessment & Plan (1) URI, acute: Code(s): J06.9 - Acute upper respiratory infection, unspecified Plan: - VSS, pt well appearing and PE unremarkable. - Conduct tests for influenza, COVID-19, and RSV to rule out viral infections. - Continue cetirizine for allergic rhinitis management. - Recommend decongestant such as Mucinex for chest congestion. - Prescribe cough suppressant for nighttime use to improve sleep quality. - Advise rest and provide a work note for absence coverage. Patient was informed and verbally consented to the use of an ambient scribe for clinic note documentation during this visit Orders: Orders SARS-CoV2/FLU/RSV Today R09.89 - Other specified symptoms and signs involving the circulatory and respiratory systems Medications: New benzonatate 200 mg PO BEDTIME PRN 10 caps 0RF cough Coding Level of Care Code Est Pt Level 3 (86044) Diagnoses URI, acute J06.9
== END 2025-05-13 13:12 | disposition home or self-care (01) ==
PROVIDERS: PCP Family Medicine; Visit Provider Physician Assistant
DX: J06.9 Acute upper respiratory infection, unspecified (principal)

== ENCOUNTER 2025-05-13 13:06 | Outpatient (REF) | payer MEDICARE, MEDICAID, SELFPAY ==
[2025-05-13 17:22] LABS: Influenza A PCR NEGATIVE (Negative); Influenza B PCR NEGATIVE (Negative); Resp Syncy Virus RNA Qual PCR NEGATIVE (Negative); SARS COV2 PCR INHOUSE NEGATIVE (Negative)
== END 2025-05-13 13:07 | disposition home or self-care (01) ==
LOC: HO.LAB 13:06
PROVIDERS: Visit Provider Physician Assistant
DX: J06.9 Acute upper respiratory infection, unspecified (principal); R09.89 Other specified symptoms and signs involving the circulatory and respiratory systems
CPT/HCPCS: 0241U; 99212

== ENCOUNTER 2025-06-11 09:39 | Outpatient (AMB) | payer MEDICARE, MEDICAID, SELFPAY ==
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
[2025-06-11 09:47] VITALS: BP 122/84; PULSE 79; RESP 14; TEMP 36.6; O2SAT 97; BMI 22.7
== END 2025-06-11 10:21 | disposition home or self-care (01) ==
LOC: HO.HMCFM 09:40
PROVIDERS: PCP Family Medicine; Visit Provider Physician Assistant
DX: Z00.00 Encounter for general adult medical examination without abnormal findings (principal); M54.9 Dorsalgia, unspecified; F41.8 Other specified anxiety disorders; M25.561 Pain in right knee; M25.562 Pain in left knee; G89.29 Other chronic pain; J30.2 Other seasonal allergic rhinitis

== ENCOUNTER → 2025-06-11 09:39 | Outpatient (BNVA) | payer MEDICARE, MEDICAID, SELFPAY | PROVIDERS: PCP Family Medicine; Visit Provider Physician Assistant | DX: Z00.01 Encounter for general adult medical examination with abnormal findings (principal); F41.8 Other specified anxiety disorders; M54.9 Dorsalgia, unspecified; M25.561 Pain in right knee; M25.562 Pain in left knee; G89.29 Other chronic pain; J30.2 Other seasonal allergic rhinitis | CPT/HCPCS: 96127; 99212; 99396 ==

== ENCOUNTER 2025-06-11 10:38 | Outpatient (REF) | payer MEDICARE, MEDICAID, SELFPAY ==
[2025-06-11 13:52] LABS: MANUAL DIFF FLAG NO
[2025-06-11 13:54] LABS: Hematocrit 45.6 % (42.0-52.0); Hemoglobin 15.5 g/dl (14.0-18.0); Imm Gran Abs Auto 0.02 X10*3/uL (0.00-0.03); Imm Gran Pct Auto 0.2 % (0.0-0.4); Lymphocytes Absolute Auto 3.0 X10*3/uL (1.2-4.9); Mean Corpuscular HGB Conc 34.0 g/dl (31.0-36.0); Mean Corpuscular Hemoglobin 31.6 pg (27.0-33.0); Mean Corpuscular Volume 93.1 fL (80.0-98.0); NRBC Abs Auto 0.000 X10*3/uL (0.0-0.012); NRBC Pct Auto 0.0 /100WBC (0.0-0.2); Platelet Count 415 X10*3/uL (160-400); Red Blood Count 4.90 X10*6/uL (4.60-5.80); White Blood Count 8.3 X10*3/uL (4.8-10.8)
[2025-06-11 13:58] LABS: Appearance Urine Clear; Glucose Urine UA Negative (Negative); PH 6.0 (5.0-9.0); Specific Gravity - Urine 1.010 (1.005-1.025)
[2025-06-11 14:16] LABS: Alanine Aminotransferase 27 U/L (0-40); Albumin Level 4.4 g/dL (3.5-5.0); Alkaline Phosphatase 72 U/L (39-117); Anion Gap 9 (12-20); Aspartate Amino Transferase 33 U/L (5-37); Blood Urea Nitrogen 11 mg/dL (9-16); Calcium 9.9 mg/dL (8.4-10.2); Carbon Dioxide 29 mmol/L (22-29); Chloride 104 mmol/L (96-108); Cholesterol 209 mg/dL (<200); Estimated Glomerular Filt Rate > 60; HDL Cholesterol 56 mg/dL (>40); Potassium 4.1 mmol/L (3.3-5.1); Sodium 138 mmol/L (135-145); Total Protein 6.9 g/dL (6.5-8.0); Triglycerides 135 mg/dL (<150)
== END 2025-06-11 10:39 | disposition home or self-care (01) ==
LOC: HO.WFDLDS 10:38
PROVIDERS: Visit Provider Physician Assistant
DX: Z01.89 Encounter for other specified special examinations (principal); F41.8 Other specified anxiety disorders; Z13.220 Encounter for screening for lipoid disorders
CPT/HCPCS: 36415; 80053; 80061; 81003; 82043; 82570; 84153; 84443; 85025

== ENCOUNTER 2025-07-07 13:45 | Outpatient (AMB) | payer MEDICARE, MEDICAID, SELFPAY ==
[2025-07-07 13:48] VITALS: BP 106/60; PULSE 89; TEMP 36.7; O2SAT 99; BMI 23.4
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
== END 2025-07-07 14:24 | disposition home or self-care (01) ==
PROVIDERS: PCP Family Medicine; Visit Provider Physician Assistant
DX: M25.561 Pain in right knee (principal); M25.562 Pain in left knee; G89.29 Other chronic pain

== ENCOUNTER → 2025-07-07 13:45 | Outpatient (BNVA) | payer MEDICARE, MEDICAID, SELFPAY | PROVIDERS: PCP Family Medicine; Visit Provider Physician Assistant | DX: M25.561 Pain in right knee (principal); M25.562 Pain in left knee; G89.29 Other chronic pain | CPT/HCPCS: 99212 ==

== ENCOUNTER 2025-07-21 15:35 | Outpatient (AMB) | payer MEDICARE, MEDICAID, SELFPAY ==
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
[2025-07-21 15:43] VITALS: BP 118/80; PULSE 87; RESP 14; TEMP 36.8; O2SAT 98; BMI 22.7
== END 2025-07-21 16:23 | disposition home or self-care (01) ==
LOC: HO.HMCFM 15:36
PROVIDERS: PCP Family Medicine; Visit Provider Family Medicine
DX: M54.9 Dorsalgia, unspecified (principal); G89.29 Other chronic pain; M25.561 Pain in right knee; M25.562 Pain in left knee

== ENCOUNTER → 2025-07-21 15:35 | Outpatient (BNVA) | payer MEDICARE, MEDICAID, SELFPAY | PROVIDERS: PCP Family Medicine; Visit Provider Family Medicine | DX: M54.9 Dorsalgia, unspecified (principal); G89.29 Other chronic pain; M25.561 Pain in right knee; M25.562 Pain in left knee | CPT/HCPCS: 99212 ==

== ENCOUNTER 2025-08-24 11:54 | Outpatient (AMB) | payer MEDICARE, MEDICAID, SELFPAY ==
[2025-08-24 11:58] VITALS: BP 128/88; PULSE 76; O2SAT 97; BMI 23.6
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
== END 2025-08-24 12:43 | disposition home or self-care (01) ==
LOC: HO.HMCFM 11:55
PROVIDERS: PCP Family Medicine; Visit Provider Family Medicine
DX: M25.561 Pain in right knee (principal); M25.562 Pain in left knee; G89.29 Other chronic pain; M54.9 Dorsalgia, unspecified; T78.40XA Allergy, unspecified, initial encounter; F41.8 Other specified anxiety disorders

== ENCOUNTER → 2025-08-24 11:54 | Outpatient (BNVA) | payer MEDICARE, MEDICAID, SELFPAY | PROVIDERS: PCP Family Medicine; Visit Provider Family Medicine | DX: M25.561 Pain in right knee (principal); M25.562 Pain in left knee; M54.50 Low back pain, unspecified; G89.29 Other chronic pain; F41.8 Other specified anxiety disorders; Z91.09 Other allergy status, other than to drugs and biological substances | CPT/HCPCS: 96127; 99212 ==

== ENCOUNTER 2025-09-03 13:43 | Outpatient (AMB) | payer MEDICARE, MEDICAID, SELFPAY ==
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
[2025-09-03 13:52] VITALS: BP 139/88; PULSE 89; RESP 13; TEMP 37.1; O2SAT 97; BMI 23.9
== END 2025-09-03 14:25 | disposition home or self-care (01) ==
LOC: HO.HMCFM 13:44
PROVIDERS: PCP Family Medicine; Visit Provider Family Medicine
DX: M54.9 Dorsalgia, unspecified (principal); G89.29 Other chronic pain; S06.0XAA Concussion with loss of consciousness status unknown, initial encounter; S16.1XXA Strain of muscle, fascia and tendon at neck level, initial encounter

== ENCOUNTER → 2025-09-03 13:43 | Outpatient (BNVA) | payer MEDICARE, MEDICAID, SELFPAY | PROVIDERS: PCP Family Medicine; Visit Provider Family Medicine | DX: M54.12 Radiculopathy, cervical region (principal); M54.16 Radiculopathy, lumbar region; M25.561 Pain in right knee; M25.562 Pain in left knee; S06.0XAA Concussion with loss of consciousness status unknown, initial encounter; S16.1XXA Strain of muscle, fascia and tendon at neck level, initial encounter; X58.XXXA Exposure to other specified factors, initial encounter; Y93.9 Activity, unspecified; Y92.9 Unspecified place or not applicable; Y99.9 Unspecified external cause status | CPT/HCPCS: 96127; 99212 ==

== ENCOUNTER 2025-10-27 09:18 | Outpatient (AMB) | payer OTHER, MEDICARE, MEDICAID, SELFPAY ==
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
[2025-10-27 10:02] VITALS: BP 104/72; PULSE 80; RESP 14; TEMP 36.7; O2SAT 98; BMI 24.2
== END 2025-10-27 10:59 | disposition home or self-care (01) ==
LOC: HO.HMCFM 09:19
PROVIDERS: PCP Family Medicine; Visit Provider Family Medicine
DX: M54.9 Dorsalgia, unspecified (principal); G89.29 Other chronic pain; S06.0XAA Concussion with loss of consciousness status unknown, initial encounter; M25.561 Pain in right knee; M25.562 Pain in left knee